=== PATIENT | female | born 1975 | race Caucasian/White ===

== ENCOUNTER 2016-08-11 07:00 | Inpatient (IN) | payer BC ==
[~2016-08-11] VITALS: Ht 154.9 cm; Wt 130.0 kg
[~2016-08-11 07:00] MED LIST: ACET-2047 PO; ASPI-664 PO; DULO60CA6 PO; GABA-526 PO; GLIP5TAB13 PO; HYDR25TA6 PO; LOSA25TA5 PO; METF1000 PO; SITA50TA2 PO
[2016-09-03] VITALS (32 sets, daily range): BP systolic 107–159; BP diastolic 53–87; PULSE 78–112; RESP 11–22; Ht 154.9 cm; Wt 130.0 kg
[2016-09-03] MEDS ORDERED: CEFAZOLIN 2 GM/50 ML (PMX) 50 ML IVPB SCH (08:00)
[2016-09-03] MEDS ORDERED: DILT180C75 PO (08:25)
[2016-09-03] MEDS ORDERED: METF850T PO (08:26)
[2016-09-03] MEDS ORDERED: SITA100T8 PO (08:27)
[2016-09-03] MEDS ORDERED: GLIP5TAB13 PO (08:30)
[2016-09-03] MEDS ORDERED: DULO60CA59 PO (08:31)
[2016-09-03] MEDS ORDERED: MIRT30TA5 PO (08:33)
[2016-09-03] MEDS ORDERED: ARIP10TA13 PO (08:34)
[2016-09-03] MEDS ORDERED: GABA-528 PO (08:35)
[2016-09-03] MEDS ORDERED: LORA0.5T PO (08:35)
--- NOTE | 2016-09-03 09:03 | HPN ---
Date/Time of Note Date/Time of Note DATE: 09/03/16 TIME: 09:02 Interval H&P Admission Note Pt. seen H&P reviewed: No system changes SIVAKUMAR SALVADOR MD Sep 03, 2016 09:02
[2016-09-03] MEDS ORDERED: ROCURONIUM 50 MG INJ ONE ×2 (09:27→10:29)
[2016-09-03] MEDS ORDERED: MIDAZOLAM 1 MG/ML 2 ML INJ ONE (09:27)
[2016-09-03] MEDS ORDERED: SUCCINYLCHOLINE CHLORIDE 100 MG/5 ML SYG IV ONE (09:27)
[2016-09-03] MEDS ORDERED: PROPOFOL 20 ML ONE ×2 (09:27→10:24)
[2016-09-03] MEDS ORDERED: LIDOCAINE 2% (SDV) 5 ML INJ ONE (09:27)
[2016-09-03] MEDS ORDERED: INSULIN ASPART [NOVOLOG] 3 ML PEN SC ONE ×2 (09:30→13:30)
[2016-09-03] MEDS ORDERED: GELATIN SIZE 100 SPONGE ONE ×2 (09:31→11:26)
[2016-09-03] MEDS ORDERED: HEPARIN 1000 UNITS/ML 10 ML INJ ONE (09:32)
[2016-09-03] MEDS ORDERED: THROMBIN 5000 UNIT VIAL ONE (09:32)
[2016-09-03] MEDS ORDERED: CEFAZOLIN 1 GM INJ ONE ×4 (09:32→13:47)
[2016-09-03] MEDS ORDERED: BUPIVACAINE 0.25% (MPF) 10 ML 10 ML VIAL ONE (09:32)
[2016-09-03] MEDS ORDERED: PHENYLephrine (100 MCG/ML) 5ML SYG ONE ×2 (10:21→11:41)
[2016-09-03] MEDS ORDERED: ONDANSETRON 4 MG INJ ONE (10:31)
[2016-09-03] MEDS ORDERED: FAMOTIDINE 20 MG INJ ONE (10:31)
[2016-09-03] MEDS ORDERED: METOCLOPRAMIDE 10 MG INJ ONE (10:32)
[2016-09-03] MEDS ORDERED: HYDROmorphONE 2 MG/ML SYG ONE (12:21)
[2016-09-03] MEDS ORDERED: THROMBIN(HUM PLAS)/FIBRINOG/CA 5 ML VIAL TOP ONE (13:22)
[2016-09-03] MEDS ORDERED: DIPHENHYDRAMINE 50 MG INJ IV PRN (13:30)
[2016-09-03] MEDS ORDERED: ONDANSETRON 4 MG INJ IV PRN ×2 (13:30→14:30)
[2016-09-03] MEDS ORDERED: PROCHLORPERAZINE 10 MG INJ IV PRN (13:30)
[2016-09-03] MEDS ORDERED: FENTAnyl 50 MCG/ML VIAL IV PRN (13:30)
[2016-09-03] MEDS ORDERED: HYDROmorphONE (0.2 MG/ML) 10ML SYG IV PRN (13:30)
[2016-09-03] MEDS ORDERED: MEPERIDINE 25 MG INJ IV PRN (13:30)
--- NOTE | 2016-09-03 13:57 | RADRPT ---
PROCEDURE: Intraoperative imaging of the lumbar spine with fluoroscopy. CLINICAL INDICATION: Back pain. Intraoperative. TECHNIQUE: 14 images of the lumbar spine were obtained in the operating room with an image intensi fier. No radiologist was in attendance. 62.6 seconds of fluoroscopy time was used. COMPARISON: No prior study is available for comparison. FINDINGS: For the purposes of this report, the last apparent true disc level is considered to be L5-S1. Based on this, images demonstrate posterior fusion with pedicle screws and connecting rods at L5-S1. IMPRESSION: 1. Intraoperative imaging of the lumbar spine. Posterior fusion at L5-S1. RPTAT: QQ .Sourav Sawyer MD, MD Date Time Electronically viewed and signed by .Sourav Sawyer MD, on 09/03/2016 13:57 .R/
[2016-09-03] MEDS ORDERED: CEPASTAT LOZENGE MT PRN (14:30)
[2016-09-03] MEDS ORDERED: DIPHENHYDRAMINE 50 MG CAP PO PRN (14:30)
[2016-09-03] MEDS ORDERED: BETHANECHOL 25 MG TAB PO PRN (14:30)
[2016-09-03] MEDS ORDERED: PROCHLORPERAZINE 10 MG TAB PO PRN (14:30)
[2016-09-03] MEDS ORDERED: NACL 0.9% 3 ML SYG IV SCH (14:30)
[2016-09-03] MEDS ORDERED: DIAZEPAM 5 MG TAB PO PRN (14:30)
[2016-09-03] MEDS ORDERED: ZOLPIDEM 5 MG TAB PO PRN (14:30)
[2016-09-03] MEDS ORDERED: DIAZEPAM 5 MG/ML SYG IM PRN (14:30)
[2016-09-03] MEDS ORDERED: ACETAMINOPHEN 325 MG TAB PO PRN (14:30)
[2016-09-03] MEDS ORDERED: NALOXONE (0.4 MG/ML) INJ IV PRN (14:30)
[2016-09-03] MEDS ORDERED: TRIMETHOBENZAMIDE 100 MG/ML VIAL IM PRN (14:30)
[2016-09-03] MEDS ORDERED: HYDROCODONE/APAP (5/325) TAB PO PRN (14:30)
[2016-09-03] MEDS ORDERED: AL HYDROX/MG HYDROX/SIMETH 30 ML CUP PO PRN (14:30)
--- NOTE | 2016-09-03 14:34 | OPR ---
Date/Time of Note Date/Time of Note DATE: 09/03/16 TIME: 14:30 Operative Report Preoperative Diagnosis Herniated lumbar disc L5-S1 centrally and to the right Grade 1 isthmic spondylolisthesis at L5-S1 Postoperative Diagnosis Same Operation Performed Transforaminal lumbar interbody fusion L5-S1 Akers procedure L5 Internal fixation L5-S1 with Alphatec pedicle screws and rods Placement of interbody bone graft at L5-S1, Peek cage with bone morphogenic protein. Cosmetic wound closure (10 cm) AP and lateral intraoperative fluoroscopy Intraoperative nerve monitoring (3-1/2 hours) Surgeon: SIVAKUMAR SALVADOR MD activities assistant: KRISS HAN Anesthesia: general Anesthesiologist: ANNABELLA MUÑOZ MD Estimated Blood Loss: other Specimens Disk L5-S1 Tubes/Drains 2 medium Hemovac drains employed Complications: None Pt Condition Post Procedure: stable Disposition: PACU Operative\Procedure Findings At surgery, the patient had a grade 1 isthmic spondylolisthesis at L5-S1 with a loose posterior arch at L5. There was a small to moderate central herniation of the L5-S1 disc. SIVAKUMAR SALVADOR MD Sep 03, 2016 14:34
[2016-09-03] MEDS ORDERED: HYDROmorphONE 0.2 MG/ML PCA ONE (14:45)
[2016-09-03] MEDS: HYDROmorphONE 0.2 MG/ML PCA IV SCH ×2 (15:02→20:59)
--- NOTE | 2016-09-03 15:21 | OPR ---
DATE OF OPERATION: 09/03/2016 PREOPERATIVE DIAGNOSES: 1. Grade I isthmic spondylolisthesis at L5-S1. 2. Herniated disk L5-S1 centrally and to the right. POSTOPERATIVE DIAGNOSES: 1. Grade I isthmic spondylolisthesis at L5-S1. 2. Herniated disk L5-S1 centrally and to the right. OPERATION PERFORMED: 1. Transforaminal lumbar interbody fusion at L5-S1. 2. Akers procedure of L5 (removal of loose posterior arch). 3. Internal fixation L5-S1 with Alphatec pedicle screws and rods bilaterally. 4. Placement of interbody bone graft at L5-S1 with PEEK cage and extra small unit of bone morphogen ic protein. 5. Cosmetic wound closure (10 cm). 6. AP and lateral intraoperative fluoroscopy. 7. Intraoperative nerve monitoring (3-1/2 hours) SURGEON: Iain Cameron MD AUTOMATIC BUFFING WHEEL FORMER: CONSTANZA Kennedy. ANESTHESIA: General endotracheal. ANESTHESIOLOGIST: Rut Hernandez MD ESTIMATED BLOOD LOSS: 350 mL and 150 mL of Cell Saver blood returned. COMPLICATIONS: None. DRAINS: Two medium Hemovac drains employed. COMPLICATIONS: None. SURGEON: Iain Cameron MD. PERTINENT HISTORY AND PHYSICAL: This is a 41-year-old female with persistent back and lower extremi ty complaints, right greater than left, which have been unrelieved by extensive conservative managem ent. She has undergone a number of diagnostic studies including an MRI of the lumbar spine, which d emonstrated a central and right paracentral herniation of the L5-S1 disk along with grade I isthmic spondylolisthesis at L5-S1. Treatment options were discussed with the patient, she elected to proce ed with surgery. OPERATIVE FINDINGS AT SURGERY: Grade I isthmic spondylolisthesis at L5-S1 with loose posterior arch of L5 was confirmed. There was also a small to moderate central and right paracentral herniation o f the L5-S1 disk. Baseline intraoperative nerve monitoring revealed a decrease in the right L5 pote ntial of 30% and the right S1 potential of 40%. These both returned to normal at the completion of surgery. OPERATIVE PROCEDURE: With the patient in supine position after satisfactory induction of general en dotracheal anesthesia by Dr. Hernandez, the patient was turned to the prone position onto the Trent fram e atop the fluoroscopic OSI table. All pressure points were carefully padded. The back was prepped and draped in usual sterile fashion. Athrombic pumps were applied to the legs below the knees to p revent venous stasis during and after the procedure. An indwelling Figueroa catheter was also placed p reoperatively to facilitate bladder drainage during and after the procedure. Two spinal needles wer e placed next to what was felt to be the L4 and L5 spinous processes and lateral fluoroscopic image was taken which confirmed anatomic localization. A 10 cm incision was then carried out midline over the spinous process of L5 through skin and subcutaneous tissue to deep fascia after skin was infilt rated with 0.25% Marcaine without epinephrine for postoperative analgesia. Superficial retractors w ere placed and hemostasis secured with electrocautery. Throughout the procedure, copious amounts of antibacterial irrigating solution were used to periodically irrigate the wound. The fascia was the n incised in midline and a bilateral subperiosteal dissection carried out from L4 to the sacrum. De ep retractors were placed and deep hemostasis secured with electrocautery. A John clamp was place d and it was felt to be the spinous process of L4 and L5 and lateral image was taken and confirmed a natomic localization. A decompressive laminectomy/Akers procedure at L5 was then carried out using a Annalisa right-angle bone rongeur, Leksell rongeur, Kerrison punches and curettes. The pars interar ticularis complex was removed bilaterally which was impinging on the L5 nerves bilaterally. The ope rating microscope was then moved into place. The S1 root on the right was mobilized medially with a blunt Agency elevator and protected with Rosalina nerve retractor using microdissection technique. This revealed a herniation of the L5-S1 disk. A 15 blade knife used to cut a rectangular window in the annulus and posterior longitudinal ligament and multiple degenerative disk fragments were then harvested with pituitary rongeurs and sent to laboratory for pathologic study. Additional fragments were harvested using Omar curettes. A thorough search of the floor of the canal was made with a n arthroscopic probe. No additional fragments were encountered. The Alphatec disk chiquita were the n inserted into the disk space starting with 6 mm shaver removing up to a 9 mm shaver, which appeare d to be the appropriate maximum size. The rasps were then used to abrade the cartilaginous endplate s down to subchondral bleeding bone. The PEEK cage trial spacers were then inserted into the disk s pace starting with a 6 mm trial and ending up with a 9 mm trial which appeared to be the appropriate size. A 9 mm lordotic PEEK cage was then selected and filled with an extra small unit of bone morp hogenic protein that had been saturating for approximately 45 minutes prior to implantation. Prior to implanting of the PEEK cage and bone morphogenic protein, the anterior aspect of the disk space w as packed with morselized bone from the posterior elements of L5. The PEEK cage was then impacted u nder direct vision. The opening into the canal from the disk space was sealed at the end of procedu re with Evicel to mitigate extravasation of the BMP into the canal. The pedicles of L5 and S1 were then identified and two 5.5 mm wide x 40 mm long pedicle screws were inserted into the L5 pedicles b ilaterally. Two 6.5 mm wide x 35 mm long variable angled Alphatec pedicle screws were placed into t he pedicles of S1 bilaterally. Again, AP and lateral fluoroscopic imaging was used to facilitate pl acement of the hardware and confirmation of the appropriate positioning of the PEEK cage in the L5-S 1 disk space. The Trent frame was then cranked to its lowest position and the 30 mm lordotic Alpha migue rods were then placed in the tulips of the L5 and S1 screws and were sequentially tightened to f actory specifications while the construct was held under compression bilaterally. Final AP and late ral imaging was taken, which confirmed appropriate positioning of the hardware and the interbody spa cer. The wound was then closed in layers over 2 medium Hemovac drains, one below the fascia and one above the fascia, using #1 Stratafix sutures on the deep paralumbar musculature and deep fascia of back, 2-0 Stratafix sutures in subcu tissue and a 4-0 Vicryl #6 cosmetic closing suture on the skin. Dermabond and sterile compressive dressings were applied. Patient having tolerated procedure well , was then turned to the supine position onto her bed and extubated by Dr. Hernandez. She was transporte d to recovery room in satisfactory condition. At the conclusion of the procedure, sponge, instrumen t, and needle counts were all correct. NEED FOR SOLAR SALES ASSOCIATE: During this spinal surgical procedure, my commercial escrow assistant was used to retrac t and protect the spinal nerves and dural sac. My commercial escrow assistant also employed the suction catheters to e vacuate blood from the surgical field to improve visualization of the neural structures. The assista nt was medically necessary to facilitate the completion of the surgery in a safe and expeditious man ner. [facility] regulations, as well as hospital bylaws, preclude the use of non-licensed [facility] hospital care personnel such as operating room technicians, to perform these functions. Throughout the procedure, neuromonitoring was carried out by [employer] in cluding EMG, SSEP and MEP monitoring of the L3, L4, L5 and S1 nerve roots bilaterally along with spi nal cord potentials. These were interpreted by a neurologist employed by [employer]. Dictated By: IAIN STREETER/BECKIE Conf#: [id number] DID#: [id number]
[2016-09-03] MEDS: SOD CHLORIDE 0.45% 1,000 ML IV SCH (18:31)
[2016-09-03] MEDS: CEFAZOLIN 1 GM/50 ML (PMX) 50 ML IVPB SCH ×2 (18:32→23:33)
--- NOTE | 2016-09-03 19:27 | CONS ---
Date/Time of Note Date/Time of Note DATE: 09/03/16 TIME: 19:27 Assessment/Plan Assessment/Plan Additional Assessment/Plan IMPRESSION 1. s/p Lumbar surgery 2. HTN 3. DM 4. Erosive Gastritis 5. Orbid Obesity with a BMI of 54 6. JAIDEN on CPAP at home PLAN cont current medical mgmt Adjust Insulin as need for better glycemic control Will check A1c, fasting lipids and TSH CPAP at night. Breathing tretment PRN weight loss advised Consultation Date/Type/Reason Admit Date/Time Sep 03, 2016 at 06:50 Hx of Present Illness Pt is a 56 yo morbidly obese female with hx of HTN, DM, JAIDEN on CPAP at home who is now s/p transforaminal lumbar interbody fusion at L5-S1. consult was placed for medical mgmt. Currently pt is denying, chest pain, SOB, fever, chills, N/V. . Social History Smoking Status: Never smoker Exam/Review of Systems Vital Signs Vitals Vital Signs Date Time Temp Pulse Resp B/P Pulse Ox O2 Delivery O2 Flow Rate FiO2 09/03/16 15:28 100 17 139/65 98 Nasal Cannula 3.0 09/03/16 14:26 98.9 Exam Constitutional: obese, other (sleepy, but arousable) Head: atraumatic, normocephalic Eyes: EOMI, PERRL Neck: non-tender, supple Respiratory: clear to auscultation, normal air movement Cardiovascular: nl pulses, regular rate and rhythm Gastrointestinal: non-tender, soft Extremities: normal pulses Results Results 24 hrs Laboratory Tests Test 09/03/16 08:41 09/03/16 10:56 09/03/16 13:03 09/03/16 15:51 Bedside Glucose 269 H 204 211 214 Test 09/03/16 18:44 Bedside Glucose 230 H Medications Medications Current Medications Sodium Chloride (1/2 NS) 1,000 ml @ 100 mls/hr Q10H IV Last administered on t 18:31; Admin Dose 100 MLS/HR; Start 09/03/16 at 14:19 Acetaminophen/ Hydrocodone Bitart ([place] (5/325)) 1 tab Q4H PRN PO PAIN LEVEL 1 -5; Start 09/03/16 at 14:30 Acetaminophen/ Hydrocodone Bitart 2 tab 2 tab Q4H PRN PO PAIN LEVEL 6-10; Start 09/03/16 at 14:30 Cefazolin Sodium (Ancef 1 Gm/50 ml (Pmx)) 50 ml @ 100 mls/hr Q6 IVPB Last administered on 09/03/16t 18:32; Admin Dose 100 MLS/HR; Start 09/03/16 at 18:00 ; Stop 09/04/16 at 12:29 Zolpidem Tartrate (Ambien) 5 mg HS PRN PO INSOMNIA; Start 09/03/16 at 14:30 Prochlorperazine (Compazine) 10 mg Q4H PRN PO NAUSEA AND/OR VOMITING; Start at 14:30 Trimethobenzamide HCl (Tigan) 200 mg Q4H PRN IM NAUSEA AND/OR VOMITING; Start 09/03/16 at 14:30 Ondansetron HCl (Zofran Inj) 4 mg Q6H PRN IV NAUSEA AND/OR VOMITING; Start at 14:30 Al Hydrox/Mg Hydrox/Simethicone (Mag-Al Plus) 15 ml Q4H PRN PO CONSTIPATION; Start 09/03/16 at 14:30 Docusate Sodium (Colace) 100 mg BID PO ; Start 09/04/16 at 09:00 Acetaminophen (Tylenol Tab) 650 mg Q4H PRN PO TEMP GREATER THAN 101F OR AGUDELO; Start 09/03/16 at 14:30 Ascorbic Acid (Vitamin C) 1,000 mg BID PO ; Start 09/04/16 at 09:00 Ferrous Sulfate (Ferrous Sulfate (Ec)) 325 mg TID PO ; Start 09/04/16 at 09:00 Ranitidine HCl (Zantac) 150 mg BID PO ; Start 09/03/16 at 21:00 Diazepam (Valium) 5 mg Q4H PRN PO MUSCLE SPASMS; Start 09/03/16 at 14:30 Diazepam (Valium) 5 mg Q4H PRN IM MUSCLE SPASMS; Start 09/03/16 at 14:30 Phenol (Cepastat Lozenge) 1 lozenge PRN PRN MT SORE THROAT; Start 09/03/16 at 14:30 Bethanechol Chloride (Urecholine) 25 mg PRN PRN PO UNABLE TO VOID; Start at 14:30 Diphenhydramine HCl (Benadryl) 50 mg Q6H PRN PO PRURITUS; Start 09/03/16 at 14: 30 Hydromorphone HCl (Dilaudid BODY ENGINEER) Q4PCA IV Last administered on 09/03/16t 15:02 ; Admin Dose 6 MG; Start 09/03/16 at 14:30 Naloxone HCl (Narcan) 0.2 mg Q2M PRN IV RR 8 BREATHS/MIN OR LESS; Start at 14:30 KRISTEN URENA MD Sep 03, 2016 19:27
[2016-09-03] MEDS ORDERED: LORAZEPAM 0.5 MG TAB PO PRN (19:30)
[2016-09-03] MEDS ORDERED: INSULIN GLARGINE [LANtus] 3 ML PEN SC SCH (20:00)
[2016-09-03] MEDS ORDERED: DEXTROSE 50% 50 ML SYRINGE IV PRN ×2 (20:00)
[2016-09-03] MEDS ORDERED: GLUCAGON 1 MG INJ IM PRN (20:00)
[2016-09-03] MEDS ORDERED: GLUCOSE GEL 15 GRAM TUBE BUCCAL PRN (20:00)
[2016-09-03] MEDS ORDERED: GLUCOSE GEL 15 GRAM TUBE PO PRN ×2 (20:00)
[2016-09-03] MEDS: GABAPENTIN 400 MG CAP PO SCH (20:44)
[2016-09-03] MEDS: MIRTAZAPINE 15 MG TAB PO SCH (20:44)
[2016-09-03] MEDS: RANITIDINE 150 MG TAB PO SCH (20:44)
[2016-09-03] MEDS: INSULIN ASPART [NOVOLOG] 3 ML PEN SC SCH (20:53)
[2016-09-04 00:01] VITALS: BP 122/59; PULSE 82
[2016-09-04] MEDS: SOD CHLORIDE 0.45% 1,000 ML IV SCH ×3 (00:19→20:19)
[2016-09-04 02:00] VITALS: BP 126/57; PULSE 81
[2016-09-04] MEDS: ACCU-CHEK XX SCH (02:51)
[2016-09-04 05:20] LABS: HEMATOCRIT 35.8 % (37.0-47.0); HEMOGLOBIN 10.8 g/dl (12.0-16.0)
[2016-09-04 05:37] LABS: CALCIUM 8.4 mg/dl (8.4-10.2); CREATININE 0.68 mg/dl (0.44-1.00); POTASSIUM 4.2 mmol/L (3.5-5.1)
[2016-09-04] MEDS: CEFAZOLIN 1 GM/50 ML (PMX) 50 ML IVPB SCH ×2 (05:46→12:10)
--- NOTE | 2016-09-04 07:09 | PN ---
Date/Time of Note Date/Time of Note DATE: 09/04/16 TIME: 07:08 Assessment/Plan Lines/Catheters IV Catheter Type (from Nrsg): Peripheral IV Figueroa in Place (from Nrsg): Yes Subjective 24 Hr Interval Summary The patient is postop day #1 following a transforaminal lumbar interbody fusion at L5-S1. She is resting comfortably. Neurovascular structures are intact distally. She is afebrile. Her morning labs show an elevated blood glucose ( 245) which is being managed by internal medicine. Today she will be mobilized with physical therapy as tolerated. Her Hemovac had 80 cc and will remain in place. Exam/Review of Systems Vital Signs Vitals Vital Signs Date Time Temp Pulse Resp B/P Pulse Ox O2 Delivery O2 Flow Rate FiO2 09/04/16 05:00 17 09/04/16 02:00 98.0 81 126/57 97 CPAP 09/03/16 22:00 2.0 Intake and Output 09/03/16 09/03/16 09/04/16 15:00 23:00 07:00 Intake Total 2550 ml 50 ml 1650 ml Output Total 510 ml 1880 ml Balance 2040 ml 50 ml -230 ml Results Result Diagram: 09/04/16 0450 09/04/16 0450 SIVAKUMAR SALVADOR MD Sep 04, 2016 07:09
[2016-09-04 07:37] VITALS: BP 143/80; RESP 18
[2016-09-04] MEDS ORDERED: BETHANECHOL 25 MG TAB PO PRN (08:00)
[2016-09-04] MEDS: HYDROmorphONE 0.2 MG/ML PCA IV SCH (08:22)
[2016-09-04] MEDS: GABAPENTIN 400 MG CAP PO SCH ×3 (09:56→20:30)
[2016-09-04] MEDS: ARIPIPRAZOLE 10 MG TAB PO SCH (09:56)
[2016-09-04] MEDS: DILTIAZEM (CD) 180 MG CAP PO SCH (09:57)
[2016-09-04] MEDS: LOSARTAN 25 MG TAB PO SCH (09:57)
[2016-09-04] MEDS: FERROUS SULFATE (EC) 325 MG TAB PO SCH ×3 (09:57→20:31)
[2016-09-04] MEDS: ASCORBIC ACID 500 MG TAB PO SCH ×2 (09:57→20:29)
[2016-09-04] MEDS: DULOXETINE 30 MG CAP DR PO SCH (09:57)
[2016-09-04] MEDS: RANITIDINE 150 MG TAB PO SCH ×2 (09:57→20:31)
[2016-09-04] MEDS: DOCUSATE SODIUM 100 MG CAP PO SCH ×2 (09:58→20:29)
[2016-09-04] MEDS: LINAGLIPTIN 5 MG TABLET PO SCH (09:58)
[2016-09-04] MEDS: HYDROCHLOROTHIAZIDE 25 MG TAB PO SCH (09:58)
[2016-09-04] MEDS: INSULIN ASPART [NOVOLOG] 3 ML PEN SC SCH ×4 (09:59→20:26)
[2016-09-04] MEDS: HYDROCODONE/APAP (5/325) TAB PO PRN ×2 (11:03→15:06)
--- NOTE | 2016-09-04 15:24 | CONS ---
Date/Time of Note Date/Time of Note DATE: 09/04/16 TIME: 15:22 Assessment/Plan Assessment/Plan Chief Complaint/Hosp Course No acute issues overnight. c/o intermittent back pain and being uncomfortable lying on her back Problems: Additional Assessment/Plan IMPRESSION 1. s/p Lumbar surgery 2. HTN 3. DM 4. Erosive Gastritis 5. Orbid Obesity with a BMI of 54 6. JAIDEN on CPAP at home PLAN cont current medical mgmt Adjust Insulin as need for better glycemic control Will check A1c, fasting lipids and TSH CPAP at night. Breathing tretment PRN weight loss advised Consultation Date/Type/Reason Admit Date/Time Sep 03, 2016 at 06:50 Initial Consult Date Reason for Consultation Medical mgmt Exam/Review of Systems Vital Signs Vitals Vital Signs Date Time Temp Pulse Resp B/P Pulse Ox O2 Delivery O2 Flow Rate FiO2 09/04/16 07:37 97.9 106 18 143/80 90 09/04/16 02:00 CPAP 09/03/16 22:00 2.0 Intake and Output 09/03/16 09/03/16 09/04/16 15:00 23:00 07:00 Intake Total 2550 ml 50 ml 1700 ml Output Total 510 ml 1880 ml Balance 2040 ml 50 ml -180 ml Exam Constitutional: obese, other (sleepy, but arousable) Head: atraumatic, normocephalic Eyes: EOMI, PERRL Neck: non-tender, supple Respiratory: clear to auscultation, normal air movement Cardiovascular: nl pulses, regular rate and rhythm Gastrointestinal: non-tender, soft Extremities: normal pulses Results Result Diagram: 09/04/16 0450 09/04/16 0450 Results 24 hrs Laboratory Tests Test 09/03/16 15:51 09/03/16 18:44 09/03/16 20:48 09/04/16 02:40 Bedside Glucose 214 230 H 188 213 Test 09/04/16 04:50 09/04/16 07:59 09/04/16 12:08 Hemoglobin 10.8 L Hematocrit 35.8 L Sodium Level 137 Potassium Level 4.2 Chloride Level 103 Carbon Dioxide Level 29 Anion Gap 9 Blood Urea Nitrogen 13 Creatinine 0.68 Glucose Level 235 H Calcium Level 8.4 Bedside Glucose 233 H 261 H Medications Medications Current Medications Sodium Chloride (1/2 NS) 1,000 ml @ 100 mls/hr Q10H IV Last administered on 05:04; Admin Dose 100 MLS/HR; Start 09/03/16 at 14:19 Acetaminophen/ Hydrocodone Bitart ([place] (5/325)) 1 tab Q4H PRN PO PAIN LEVEL 1 -5; Start 09/03/16 at 14:30 Acetaminophen/ Hydrocodone Bitart ([place] (5/325)) 2 tab Q4H PRN PO PAIN LEVEL 6 -10 Last administered on 09/04/16 15:06; Admin Dose 2 TAB; Start 09/03/16 at 14 :30 Zolpidem Tartrate (Ambien) 5 mg HS PRN PO INSOMNIA; Start 09/03/16 at 14:30 Prochlorperazine (Compazine) 10 mg Q4H PRN PO NAUSEA AND/OR VOMITING; Start at 14:30 Trimethobenzamide HCl (Tigan) 200 mg Q4H PRN IM NAUSEA AND/OR VOMITING; Start 09/03/16 at 14:30 Ondansetron HCl (Zofran Inj) 4 mg Q6H PRN IV NAUSEA AND/OR VOMITING Last administered on 09/03/16 20:45; Admin Dose 4 MG; Start 09/03/16 at 14:30 Al Hydrox/Mg Hydrox/Simethicone (Mag-Al Plus) 15 ml Q4H PRN PO CONSTIPATION; Start 09/03/16 at 14:30 Docusate Sodium (Colace) 100 mg BID PO Last administered on 09/04/16 09:58; Admin Dose 100 MG; Start 09/04/16 at 09:00 Acetaminophen (Tylenol Tab) 650 mg Q4H PRN PO TEMP GREATER THAN 101F OR AGUDELO; Start 09/03/16 at 14:30 Ascorbic Acid (Vitamin C) 1,000 mg BID PO Last administered on 09/04/16 09:57 ; Admin Dose 1,000 MG; Start 09/04/16 at 09:00 Ferrous Sulfate (Ferrous Sulfate (Ec)) 325 mg TID PO Last administered on 12:11; Admin Dose 325 MG; Start 09/04/16 at 09:00 Ranitidine HCl (Zantac) 150 mg BID PO Last administered on 09/04/16 09:57; Admin Dose 150 MG; Start 09/03/16 at 21:00 Diazepam (Valium) 5 mg Q4H PRN PO MUSCLE SPASMS; Start 09/03/16 at 14:30 Diazepam (Valium) 5 mg Q4H PRN IM MUSCLE SPASMS; Start 09/03/16 at 14:30 Phenol (Cepastat Lozenge) 1 lozenge PRN PRN MT SORE THROAT Last administered on 09/03/16 20:45; Admin Dose 1 LOZENGE; Start 09/03/16 at 14:30 Diphenhydramine HCl (Benadryl) 50 mg Q6H PRN PO PRURITUS; Start 09/03/16 at 14: 30 Hydromorphone HCl (Dilaudid REFINERY OPERATOR [employer]ING [employer]IT) Q4PCA IV Last administered on 09/04/16 08:22 ; Admin Dose 6 MG; Start 09/03/16 at 14:30 Naloxone HCl (Narcan) 0.2 mg Q2M PRN IV RR 8 BREATHS/MIN OR LESS; Start at 14:30 Aripiprazole (Abilify) 10 mg DAILY PO Last administered on 09/04/16 09:56; Admin Dose 10 MG; Start 09/04/16 at 09:00 Diltiazem HCl (Cardizem Cd) 180 mg DAILY PO Last administered on 09/04/16 09: 57; Admin Dose 180 MG; Start 09/04/16 at 09:00 Duloxetine HCl (Cymbalta) 120 mg DAILY PO Last administered on 09/04/16 09:57 ; Admin Dose 120 MG; Start 09/04/16 at 09:00 Gabapentin (Neurontin) 800 mg TID PO Last administered on 09/04/16 12:11; Admin Dose 800 MG; Start 09/03/16 at 21:00 Hydrochlorothiazide (Hydrochlorothiazide) 25 mg DAILY PO Last administered on 09:58; Admin Dose 25 MG; Start 09/04/16 at 09:00 Lorazepam (Ativan) 0.5 mg HS PRN PO ANXIETY; Start 09/03/16 at 19:30 Losartan Potassium (Cozaar) 25 mg DAILY PO Last administered on 09/04/16 09:57 ; Admin Dose 25 MG; Start 09/04/16 at 09:00 Mirtazapine (Remeron) 30 mg HS PO Last administered on 09/03/16 20:44; Admin Dose 30 MG; Start 09/03/16 at 21:00 Linagliptin (Tradjenta) 5 mg DAILY PO Last administered on 09/04/16 09:58; Admin Dose 5 MG; Start 09/04/16 at 09:00 Insulin Glargine (Lantus) 10 unit DAILY@20 SC Last administered on 09/03/16 20 :53; Admin Dose 10 UNIT; Start 09/03/16 at 20:00 Diagnostic Test (Pha) (Accu-Chek) 1 ea 02 XX Last administered on 09/04/16 02: 51; Admin Dose 1 EA; Start 09/04/16 at 02:00 Miscellaneous Information 1 ea NOTE XX ; Start 09/03/16 at 20:00 Glucose (Glutose) 15 gm Q15M PRN PO DECREASED GLUCOSE; Start 09/03/16 at 20:00 Glucose (Glutose) 22.5 gm Q15M PRN PO DECREASED GLUCOSE; Start 09/03/16 at 20: 00 Dextrose (D50w Syringe) 25 ml Q15M PRN IV DECREASED GLUCOSE; Start 09/03/16 at 20:00 Dextrose (D50w Syringe) 50 ml Q15M PRN IV DECREASED GLUCOSE; Start 09/03/16 at 20:00 Glucagon (Glucagen) 1 mg Q15M PRN IM DECREASED GLUCOSE; Start 09/03/16 at 20:00 Glucose (Glutose) 15 gm Q15M PRN BUCCAL DECREASED GLUCOSE; Start 09/03/16 at 20 :00 Bethanechol Chloride (Urecholine) 25 mg PRN PRN PO UNABLE TO VOID Last administered on 09/04/16 09:57; Admin Dose 25 MG; Start 09/04/16 at 08:00 KRISTEN URENA MD Sep 04, 2016 15:24
[2016-09-04 19:09] LABS: ADD UMIC YES; URINE BILIRUBIN (Dip) NEGATIVE (NEGATIVE); URINE BLOOD (Dip) 1+ (NEGATIVE); URINE COLOR LT. YELLOW (YELLOW); URINE KETONES (Dip) NEGATIVE (NEGATIVE); URINE LEUKOCYTE ESTERASE (Dip) NEGATIVE (NEGATIVE); URINE NITRITE (Dip) NEGATIVE (NEGATIVE); URINE TOTAL PROTEIN (Dip) NEGATIVE (NEGATIVE); URINE UROBILINOGEN (Dip) 0.2 E.U./dL (0.1-1.0)
[2016-09-04 19:26] LABS: SQUAMOUS EPITHELIAL CELL,UR MODERATE; URINE RBCS 0-2 /HPF (0)
[2016-09-04 19:41] VITALS: BP 113/53; RESP 20
[2016-09-04] MEDS ORDERED: INSULIN GLARGINE [LANtus] 3 ML PEN SC SCH (20:00)
[2016-09-04] MEDS: MIRTAZAPINE 15 MG TAB PO SCH (20:29)
[2016-09-05] MEDS: HYDROCODONE/APAP (5/325) TAB PO PRN ×4 (01:16→20:18)
[2016-09-05] MEDS: ACCU-CHEK XX SCH (02:00)
[2016-09-05] MEDS: SOD CHLORIDE 0.45% 1,000 ML IV SCH ×2 (04:41→16:19)
[2016-09-05 06:06] LABS: ADD SCAN DIFF NO
[2016-09-05 07:00] VITALS: BP 123/56; RESP 20
--- NOTE | 2016-09-05 07:09 | PN ---
Date/Time of Note Date/Time of Note DATE: 09/05/16 TIME: 07:08 Assessment/Plan Lines/Catheters IV Catheter Type (from Nrsg): Peripheral IV Figueroa in Place (from Nrsg): No Subjective 24 Hr Interval Summary The patient is postop day #2 following a lumbar fusion at L5-S1. She is resting comfortably in bed. She is afebrile. Neurovascular structures are intact distally. Her morning blood sugar was over 300. I have spoken with the trial lawyer. Physical therapy is cleared her for discharge. She has 65 cc of blood in her Hemovac. I will monitor her Hemovac output and pulled the drain when appropriate. Exam/Review of Systems Vital Signs Vitals Vital Signs Date Time Temp Pulse Resp B/P Pulse Ox O2 Delivery O2 Flow Rate FiO2 09/04/16 19:41 98.6 108 20 113/53 95 09/04/16 02:00 CPAP 09/03/16 22:00 2.0 Intake and Output 09/04/16 09/04/16 09/05/16 14:59 22:59 06:59 Intake Total 600 ml 1050 ml 850 ml Output Total 160 ml 1165 ml Balance 600 ml 890 ml -315 ml Results Result Diagram: 09/04/16 0450 09/04/16 0450 SIVAKUMAR SALVADOR MD Sep 05, 2016 07:09
[2016-09-05 07:10] LABS: ALBUMIN 3.5 g/dl (3.3-4.9); ALBUMIN/GLOBULIN RATIO 1.29; BILIRUBIN,INDIRECT 0.2 mg/dl (0-1.1); BILIRUBIN,TOTAL 0.2 mg/dl (0.2-1.3); CALCIUM 8.9 mg/dl (8.4-10.2); CREATININE 0.54 mg/dl (0.44-1.00); TOTAL PROTEIN 6.2 g/dl (6.1-8.1)
[2016-09-05 07:12] LABS: CHOL/HDL RATIO 5.3 RATIO
[2016-09-05 07:31] LABS: THYROID STIMULATING HORMONE 0.143 MIU/L (0.465-4.680)
[2016-09-05 08:49] LABS: POTASSIUM 4.5 mmol/L (3.5-5.1)
[2016-09-05] MEDS ORDERED: INSULIN GLARGINE [LANtus] 3 ML PEN SC SCH ×2 (09:00→20:00)
[2016-09-05] MEDS: INSULIN ASPART [NOVOLOG] 3 ML PEN SC SCH ×4 (09:01→20:24)
[2016-09-05] MEDS: ASCORBIC ACID 500 MG TAB PO SCH ×2 (09:02→20:17)
[2016-09-05] MEDS: DOCUSATE SODIUM 100 MG CAP PO SCH ×2 (09:02→20:20)
[2016-09-05] MEDS: DILTIAZEM (CD) 180 MG CAP PO SCH (09:03)
[2016-09-05] MEDS: GABAPENTIN 400 MG CAP PO SCH ×3 (09:03→20:20)
[2016-09-05] MEDS: RANITIDINE 150 MG TAB PO SCH ×2 (09:04→20:21)
[2016-09-05] MEDS: LOSARTAN 25 MG TAB PO SCH (09:04)
[2016-09-05] MEDS: DULOXETINE 30 MG CAP DR PO SCH (09:04)
[2016-09-05] MEDS: FERROUS SULFATE (EC) 325 MG TAB PO SCH ×3 (09:05→20:21)
[2016-09-05] MEDS: LINAGLIPTIN 5 MG TABLET PO SCH (09:05)
[2016-09-05] MEDS: HYDROCHLOROTHIAZIDE 25 MG TAB PO SCH (09:05)
[2016-09-05] MEDS: ARIPIPRAZOLE 10 MG TAB PO SCH (09:06)
--- NOTE | 2016-09-05 11:20 | PN ---
Date/Time of Note Date/Time of Note DATE: 09/05/16 TIME: 11:03 Assessment/Plan VTE Prophylaxis VTE Prophylaxis Intervention: SCD's Lines/Catheters IV Catheter Type (from Nrsg): Peripheral IV Urinary Cath still in place: No Assessment/Plan Assessment/Plan IMPRESSION 1. s/p Lumbar surgery 2. HTN 3. DM type 2 A1c 8.8 4. Erosive Gastritis 5. Morbid Obesity with a BMI of 54 6. JAIDEN on CPAP at home 7. Tachycardia 8. Hx of Pulm HTN diagnosed with RHC likely 2/2 #6 PLAN * Continue OOB as tolerated * resume home diabetic regimen and keep Lantus as a1c demonstrates poor home control, closely monitor however * May require increase in dose of CCB for tachycardia, however will r/o thyroid disease first and ensure pain is well controlled * Continue CPAP at night. Breathing treatment PRN * weight loss advised * ASA still on hold, resume once cleared by surgery Thanks for the Consult. We will continue to follow with you. Subjective 24 Hr Interval Summary Free Text/Dictation doing well has been cleared for OOB by PT Blood sugars still elevated Exam/Review of Systems Vital Signs Vitals Vital Signs Date Time Temp Pulse Resp B/P Pulse Ox O2 Delivery O2 Flow Rate FiO2 09/05/16 07:00 99.1 110 20 123/56 94 09/04/16 02:00 CPAP 09/03/16 22:00 2.0 Intake and Output 09/04/16 09/04/16 09/05/16 15:00 23:00 07:00 Intake Total 600 ml 1050 ml 850 ml Output Total 160 ml 1165 ml Balance 600 ml 890 ml -315 ml Exam Constitutional: alert, obese, oriented Psych: nl mood/affect Head: atraumatic, normocephalic Eyes: PERRL, No icteric ENMT: mucosa pink and moist Neck: supple Respiratory: clear to auscultation, diminished breath sounds Cardiovascular: No regular rate and rhythm (tachycardia) Gastrointestinal: bowel sounds, non-tender, other (back brace in place), soft Extremities: edema (mild in both feet) Skin: No rash or lesions Results Result Diagram: 09/04/16 4740 09/05/16 0424 Results 24 hrs Laboratory Tests Test 09/04/16 11:45 09/04/16 12:08 09/04/16 17:22 09/04/16 20:19 Urine Color LT. YELLOW Urine Clarity SLIGHTLY CLOUDY Urine pH 5.5 Urine Specific [place] 1.015 Urine Ketones NEGATIVE Urine Nitrite NEGATIVE Urine Bilirubin NEGATIVE Urine Urobilinogen 0.2 E.U./dL Urine Leukocyte Esterase NEGATIVE Urine Microscopic RBC 0-2 Urine Microscopic WBC 0-2 Urine Squamous Epithelial Cells MODERATE Urine Hemoglobin 1+ H Urine Glucose 0.5% H Urine Total Protein NEGATIVE Bedside Glucose 261 H 207 330 H Test 09/05/16 01:49 09/05/16 04:24 09/05/16 08:11 Bedside Glucose 301 H 340 H Sodium Level 136 Potassium Level 4.5 Chloride Level 100 Carbon Dioxide Level 30 Anion Gap 11 Blood Urea Nitrogen 11 Creatinine 0.54 Glucose Level 300 H Hemoglobin A1c 8.8 H Calcium Level 8.9 Total Bilirubin 0.2 Direct Bilirubin 0.00 Indirect Bilirubin 0.2 Aspartate Amino Transf (AST/SGOT) 27 Alanine Aminotransferase (ALT/SGPT) 34 Alkaline Phosphatase 106 Total Protein 6.2 Albumin 3.5 Globulin 2.70 Albumin/Globulin Ratio 1.29 Triglycerides Level 83 Cholesterol Level 156 LDL Cholesterol, Calculated 110 HDL Cholesterol 29 L Cholesterol/HDL Ratio 5.3 Thyroid Stimulating Hormone (TSH) 0.143 L Medications Medications Current Medications Sodium Chloride (1/2 NS) 1,000 ml @ 100 mls/hr Q10H IV Last administered on 05:04; Admin Dose 100 MLS/HR; Start 09/03/16 at 14:19 Acetaminophen/ Hydrocodone Bitart ([place] (5/325)) 1 tab Q4H PRN PO PAIN LEVEL 1 -5; Start 09/03/16 at 14:30 Acetaminophen/ Hydrocodone Bitart ([place] (5/325)) 2 tab Q4H PRN PO PAIN LEVEL 6 -10 Last administered on 09/05/16 10:33; Admin Dose 2 TAB; Start 09/03/16 at 14 :30 Zolpidem Tartrate (Ambien) 5 mg HS PRN PO INSOMNIA; Start 09/03/16 at 14:30 Prochlorperazine (Compazine) 10 mg Q4H PRN PO NAUSEA AND/OR VOMITING; Start at 14:30 Trimethobenzamide HCl (Tigan) 200 mg Q4H PRN IM NAUSEA AND/OR VOMITING; Start 09/03/16 at 14:30 Ondansetron HCl (Zofran Inj) 4 mg Q6H PRN IV NAUSEA AND/OR VOMITING Last administered on 09/03/16 20:45; Admin Dose 4 MG; Start 09/03/16 at 14:30 Al Hydrox/Mg Hydrox/Simethicone (Mag-Al Plus) 15 ml Q4H PRN PO CONSTIPATION; Start 09/03/16 at 14:30 Docusate Sodium (Colace) 100 mg BID PO Last administered on 09/05/16 09:02; Admin Dose 100 MG; Start 09/04/16 at 09:00 Acetaminophen (Tylenol Tab) 650 mg Q4H PRN PO TEMP GREATER THAN 101F OR AGUDELO; Start 09/03/16 at 14:30 Ascorbic Acid (Vitamin C) 1,000 mg BID PO Last administered on 09/05/16 09:02 ; Admin Dose 1,000 MG; Start 09/04/16 at 09:00 Ferrous Sulfate (Ferrous Sulfate (Ec)) 325 mg TID PO Last administered on 09:05; Admin Dose 325 MG; Start 09/04/16 at 09:00 Ranitidine HCl (Zantac) 150 mg BID PO Last administered on 09/05/16 09:04; Admin Dose 150 MG; Start 09/03/16 at 21:00 Diazepam (Valium) 5 mg Q4H PRN PO MUSCLE SPASMS Last administered on 09/04/16 17:51; Admin Dose 5 MG; Start 09/03/16 at 14:30 Diazepam (Valium) 5 mg Q4H PRN IM MUSCLE SPASMS; Start 09/03/16 at 14:30 Phenol (Cepastat Lozenge) 1 lozenge PRN PRN MT SORE THROAT Last administered on 09/03/16 20:45; Admin Dose 1 LOZENGE; Start 09/03/16 at 14:30 Diphenhydramine HCl (Benadryl) 50 mg Q6H PRN PO PRURITUS; Start 09/03/16 at 14: 30 Hydromorphone HCl (Dilaudid PRINTING SALES REPRESENTATIVE) Q4PCA IV Last administered on 09/04/16 08:22 ; Admin Dose 6 MG; Start 09/03/16 at 14:30 Naloxone HCl (Narcan) 0.2 mg Q2M PRN IV RR 8 BREATHS/MIN OR LESS; Start at 14:30 Aripiprazole (Abilify) 10 mg DAILY PO Last administered on 09/05/16 09:06; Admin Dose 10 MG; Start 09/04/16 at 09:00 Diltiazem HCl (Cardizem Cd) 180 mg DAILY PO Last administered on 09/05/16 09: 03; Admin Dose 180 MG; Start 09/04/16 at 09:00 Duloxetine HCl (Cymbalta) 120 mg DAILY PO Last administered on 09/05/16 09:04 ; Admin Dose 120 MG; Start 09/04/16 at 09:00 Gabapentin (Neurontin) 800 mg TID PO Last administered on 09/05/16 09:03; Admin Dose 800 MG; Start 09/03/16 at 21:00 Hydrochlorothiazide (Hydrochlorothiazide) 25 mg DAILY PO Last administered on 09:05; Admin Dose 25 MG; Start 09/04/16 at 09:00 Lorazepam (Ativan) 0.5 mg HS PRN PO ANXIETY; Start 09/03/16 at 19:30 Losartan Potassium (Cozaar) 25 mg DAILY PO Last administered on 09/05/16 09:04 ; Admin Dose 25 MG; Start 09/04/16 at 09:00 Mirtazapine (Remeron) 30 mg HS PO Last administered on 09/04/16 20:29; Admin Dose 30 MG; Start 09/03/16 at 21:00 Linagliptin (Tradjenta) 5 mg DAILY PO Last administered on 09/05/16 09:05; Admin Dose 5 MG; Start 09/04/16 at 09:00 Diagnostic Test (Pha) (Accu-Chek) 1 ea 02 XX Last administered on 09/04/16 02: 51; Admin Dose 1 EA; Start 09/04/16 at 02:00 Miscellaneous Information 1 ea NOTE XX ; Start 09/03/16 at 20:00 Glucose (Glutose) 15 gm Q15M PRN PO DECREASED GLUCOSE; Start 09/03/16 at 20:00 Glucose (Glutose) 22.5 gm Q15M PRN PO DECREASED GLUCOSE; Start 09/03/16 at 20: 00 Dextrose (D50w Syringe) 25 ml Q15M PRN IV DECREASED GLUCOSE; Start 09/03/16 at 20:00 Dextrose (D50w Syringe) 50 ml Q15M PRN IV DECREASED GLUCOSE; Start 09/03/16 at 20:00 Glucagon (Glucagen) 1 mg Q15M PRN IM DECREASED GLUCOSE; Start 09/03/16 at 20:00 Glucose (Glutose) 15 gm Q15M PRN BUCCAL DECREASED GLUCOSE; Start 09/03/16 at 20 :00 Bethanechol Chloride (Urecholine) 25 mg PRN PRN PO UNABLE TO VOID Last administered on 09/04/16 09:57; Admin Dose 25 MG; Start 09/04/16 at 08:00 Insulin Glargine (Lantus) 10 unit DAILY@20 SC ; Start 09/05/16 at 20:00 Insulin Glargine (Lantus) 20 unit DAILY@09 SC Last administered on 09/05/16 08 :59; Admin Dose 20 UNIT; Start 09/05/16 at 09:00 BUFFY NUÑEZ Sep 05, 2016 11:13
[2016-09-05] MEDS: metFORMIN 850 MG TAB PO SCH ×2 (12:55→17:47)
[2016-09-05 13:07] LABS: BASOPHILS % 0.1 % (0.0-2.0); EOSINOPHILS % 0.2 % (0.0-7.0); HEMATOCRIT 34.4 % (37.0-47.0); HEMOGLOBIN 10.2 g/dl (12.0-16.0); LYMPHOCYTES # 2.3 10^3/ul (0.8-2.9); LYMPHOCYTES % 18.4 % (15.0-51.0); MEAN CORPUSCULAR HEMOGLOBIN 26.4 pg (29.0-33.0); MEAN CORPUSCULAR HGB CONC 29.7 g/dl (32.0-37.0); MEAN CORPUSCULAR VOLUME 89.1 fl (82.0-101.0); MEAN PLATELET VOLUME 10.3 fl (7.4-10.4); MONOCYTE # 0.7 10^3/ul (0.3-0.9); MONOCYTES % 5.4 % (0.0-11.0); NEUTROPHIL # 9.3 10^3/ul (1.6-7.5); NEUTROPHILS % 75.3 % (39.0-77.0); PLATELET COUNT 251 10^3/UL (140-415); RED BLOOD COUNT 3.86 10^6/ul (4.20-5.40); RED CELL DISTRIBUTION WIDTH 15.1 % (11.5-14.5); WHITE BLOOD COUNT 12.3 10^3/ul (4.8-10.8)
[2016-09-05] MEDS: MIRTAZAPINE 15 MG TAB PO SCH (20:21)
[2016-09-05] MEDS ORDERED: glipiZIDE 5 MG TAB PO SCH (21:00)
== END 2016-09-05 22:00 | disposition home or self-care (01) | DRG 460 ==
LOC: REC 09-03 06:50 → MS1 09-03 18:10
PROVIDERS: ADMIT Orthopaedic Surgery; ATTEND Orthopaedic Surgery
PROC: 01NB0ZZ Release Lumbar Nerve, Open Approach (ICD-10-PCS; 2016-09-03)
PROC: 0ST40ZZ Resection of Lumbosacral Disc, Open Approach (ICD-10-PCS; 2016-09-03)
PROC: 4A11X4G Monitoring of Peripheral Nervous Electrical Activity, Intraoperative, External Approach (ICD-10-PCS; 2016-09-03)
PROC: 0SG30A1 (ICD-10-PCS; principal; 2016-09-03 10:00)
DX: M43.17 Spondylolisthesis, lumbosacral region (principal); I27.0 Primary pulmonary hypertension; F33.2 Major depressive disorder, recurrent severe without psychotic features; E66.2 Morbid (severe) obesity with alveolar hypoventilation; Z68.43 Body mass index [BMI] 50.0-59.9, adult; E11.9 Type 2 diabetes mellitus without complications; M51.27 Other intervertebral disc displacement, lumbosacral region; M47.896 Other spondylosis, lumbar region; M54.31 Sciatica, right side; D11.9 Benign neoplasm of major salivary gland, unspecified; K29.60 Other gastritis without bleeding; G47.33 Obstructive sleep apnea (adult) (pediatric); F41.9 Anxiety disorder, unspecified; R00.0 Tachycardia, unspecified; Z87.891 Personal history of nicotine dependence; Z82.49 Family history of ischemic heart disease and other diseases of the circulatory system; Z83.3 Family history of diabetes mellitus
CPT/HCPCS: 72114; 80048; 80053; 80061; 81001; 81003; 82962; 83036; 84443; 85014; 85018; 85025; 86850; 86900; 86901; 86920; 87086; 88304; 97116; 97163; 97530; C1713; C9250; J0330; J0400; J0690; J1170; J1644; J1815; J2250; J2370; J2405; J2765; J3010; L8699

== ENCOUNTER 2018-06-02 05:17 | Inpatient (IN) | payer BC ==
[2018-06-02] VITALS (26 sets, daily range): BP systolic 113–140; BP diastolic 56–81; PULSE 61–93; RESP 5–18; Ht 154.9 cm; Wt 100.2 kg
[~2018-06-02] VITALS: Ht 154.9 cm; Wt 100.2 kg
[~2018-06-02 05:17] MED LIST changes: -ACET-2047 PO; +ARIP10TA12 PO; -ASPI-664 PO; +DILT180C72 PO; +DULO60CA59 PO; -DULO60CA6 PO; -GABA-526 PO; +GABA-528 PO; +LORA0.5T PO; +LOSA25TA12 PO; -LOSA25TA5 PO; -METF1000 PO; +METF850T13 PO; +MIRT30TA5 PO; +SITA100T11 PO; -SITA50TA2 PO
[2018-06-02] MEDS ORDERED: LORA10TA3 PO (06:14)
[2018-06-02] MEDS ORDERED: CEFAZOLIN 2 GM/50 ML (PMX) 50 ML IVPB ONE (06:40)
[2018-06-02] MEDS ORDERED: CEFAZOLIN 2 GM/50 ML (PMX) 50 ML IVPB SCH (06:47)
--- NOTE | 2018-06-02 06:48 | PREAC ---
Date/Time of Note Date/Time of Note DATE: 06/02/18 TIME: 06:46 Anesthesia Eval and Record Evaluation Time Pre-Procedure Interview DATE: 06/02/18 TIME: 06:46 Age 43 Sex female NPO: 8 hrs Preoperative diagnosis painful hardware Planned procedure hardware removal and exploration spinal fusion L5-S1 Past Medical History Past Medical History: Includes Cardio: HTN, Dyslipidemia, Other (palpitations) Endo: Diabetes Pulm: Sleep Apnea GI: Morbid obesity Surgery & Anesthesia Issues No known issue Meds Anticoagulation: No Beta Dora within 24 hr: No Reason Beta Dora not given: Pt. not on B-Dora Reported Medications Loratadine* (Loratadine*) 10 Mg Tablet, 10 MG PO DAILY, #30 TAB 06/02/18 Gabapentin* (Gabapentin*) 800 Mg Tablet, 800 MG PO TID, #90 TAB 09/03/16 Diltiazem Hcl* (Cardizem CD*) 180 Mg Cap.sr.24h, 180 MG PO DAILY, #30 CAP 09/03/16 Losartan Potassium* (Losartan Potassium*) 25 Mg Tablet, 25 MG PO DAILY 06/05/15 Discontinued Reported Medications Lorazepam* (Lorazepam*) 0.5 Mg Tablet, 0.5 MG PO HS PRN for ANXIETY, TAB 09/03/16 Aripiprazole* (Abilify*) 10 Mg Tablet, 10 MG PO DAILY, #30 TAB 09/03/16 Mirtazapine* (Mirtazapine*) 30 Mg Tablet, 30 MG PO HS, TAB 09/03/16 Duloxetine Hcl* (Duloxetine Hcl*) 60 Mg Capsule.dr, 120 MG PO DAILY, #30 CAP 09/03/16 Glipizide* (Glipizide*) 5 Mg Tablet, 5 MG PO BID, TAB 09/03/16 Sitagliptin* (Januvia*) 100 Mg Tablet, 100 MG PO DAILY, #30 TAB 09/03/16 Metformin Hcl* (Metformin Hcl*) 850 Mg Tablet, 850 MG PO TID, #30 TAB 09/03/16 Hydrochlorothiazide (Hydrochlorothiazide) 25 Mg Tablet, 25 MG PO DAILY 05/28/12 Meds reviewed: Yes Allergies Coded Allergies: No Known Allergy (Unverified , 06/02/18) Allergies Reviewed: Yes Labs/Studies Labs Reviewed: Reviewed by anesthesiologist Blood Bank Test 06/02/18 06:36 Blood Product Summary Counts test: Negative Studies: ECG, CXR Pre-procedure Exam Airway: Adequate mouth opening, Adequate thyromental dist Mallampati: Mallampati III Teeth: Normal Lung: Normal Heart: Normal ASA Physical Status ASA physical status: 3 Emergency: None Planned Anesthetic General/MAC: ETT Planned Pain Management Parenteral pain med Pre-operative Attestations Prior to commencing anesthesia and surgery, the patient was re-evaluated, there was verification of: *The patient's identity *The results of appropriate recent lab work and preoperative vital signs *The above evaluation not changing prior to induction *Anesthetic plan, risk benefits, alternative and complications discussed with patient/family; questions answered; patient/family understands, accepts and wishes to proceed. ANNABELLA MUÑOZ MD Jun 02, 2018 06:48
[2018-06-02] MEDS ORDERED: PROPOFOL 20 ML ONE ×2 (07:00→07:41)
[2018-06-02] MEDS ORDERED: LACTATED RINGER'S 1,000 ML IV* SCH (07:00)
[2018-06-02] MEDS ORDERED: LIDOCAINE 2% (SDV) 5 ML INJ ONE ×2 (07:00→09:44)
[2018-06-02] MEDS ORDERED: ROCURONIUM 50 MG INJ ONE ×2 (07:00→07:41)
[2018-06-02] MEDS ORDERED: SUCCINYLCHOLINE CHLORIDE 100 MG/5 ML SYG IV ONE ×2 (07:00→07:41)
[2018-06-02] MEDS ORDERED: MIDAZOLAM 1 MG/ML 2 ML INJ ONE ×2 (07:00→09:44)
--- NOTE | 2018-06-02 07:01 | HPN ---
Date/Time of Note Date/Time of Note DATE: 06/02/18 TIME: 07:00 Interval H&P Admission Note Pt. seen H&P reviewed: No system changes SIVAKUMAR SALVADOR MD Jun 02, 2018 07:00
[2018-06-02] MEDS ORDERED: THROMBIN 5000 UNIT VIAL ONE (07:02)
[2018-06-02] MEDS ORDERED: GELATIN SIZE 100 SPONGE ONE (07:02)
[2018-06-02] MEDS ORDERED: BUPIVACAINE 0.25% (MPF) 30 ML INJ ONE (07:02)
[2018-06-02] MEDS ORDERED: POLYMYXIN/BACITRACIN 1L IRRIG ONE (07:02)
[2018-06-02] MEDS ORDERED: DEXAMETHASONE 4 MG/ML 5 ML INJ ONE ×2 (07:23→10:02)
[2018-06-02] MEDS ORDERED: ONDANSETRON 4 MG INJ ONE ×2 (07:23→10:02)
[2018-06-02] MEDS ORDERED: FAMOTIDINE 20 MG INJ ONE ×2 (07:23→10:02)
[2018-06-02] MEDS ORDERED: LABETALOL HCL 20MG INJ IV PRN (07:30)
[2018-06-02] MEDS ORDERED: FENTAnyl 50 MCG/ML VIAL IV PRN ×2 (07:30)
[2018-06-02] MEDS ORDERED: MEPERIDINE 25 MG INJ IV PRN (07:30)
[2018-06-02] MEDS ORDERED: PROCHLORPERAZINE 10 MG INJ IV PRN (07:30)
[2018-06-02] MEDS ORDERED: hydrALAzine 20 MG INJ IV PRN (07:30)
[2018-06-02] MEDS ORDERED: DIPHENHYDRAMINE 50 MG INJ IV PRN (07:30)
[2018-06-02] MEDS ORDERED: HYDROmorphONE 1 MG/5 ML IV SYRINGE IV PRN ×3 (07:30)
[2018-06-02] MEDS ORDERED: ONDANSETRON 4 MG INJ IV PRN ×2 (07:30→09:30)
[2018-06-02] MEDS ORDERED: NEOSTIGMINE 3 MG/3 ML SYRINGE ONE ×2 (08:46)
[2018-06-02] MEDS ORDERED: GLYCOPYRROLATE 0.4 MG INJ ONE (08:46)
--- NOTE | 2018-06-02 09:15 | PAC ---
Date/Time of Note Date/Time of Note DATE: 06/02/18 TIME: 09:14 Post-Anesthesia Notes Post-Anesthesia Note Last documented vital signs Vital Signs Date Temp Pulse Resp B/P (MAP) Pulse Ox O2 O2 Flow FiO2 Time Delivery Rate 06/02/18 97.6 65 18 140/81 96 Room Air 06:48 (100) Activity: WNL Respiratory function: WNL Cardiovascular function: WNL Mental status: Baseline Pain reasonably controlled: Yes Hydration appropriate: Yes Nausea/Vomiting absent: Yes Comments BP: 128/68 HR: 69 RR: 15 T: 98.5 SaO2: 100% ANNABELLA MUÑOZ MD Jun 02, 2018 09:14
--- NOTE | 2018-06-02 09:20 | SIPON ---
Date/Time of Note Date/Time of Note DATE: 06/02/18 TIME: 09:15 Operative Report Preoperative Diagnosis Status post transforaminal lumbar interbody fusion at L5-S1 with painful hardware Postoperative Diagnosis Same Operation/Procedure Performed Exploration of lumbar fusion at L5-S1 Removal of painful hardware L5-S1 bilaterally Revision of scar (10cm) Lateral lumbar localizing radiograph Intraoperative nerve monitoring (2.5 hours) Surgeon see signature line dental office assistant Laura STAPLETONA Anesthesia: general Estimated blood loss: 50 - 100 ml's Transfusion Required none Specimen 4 pedicle screws, four locking caps, and 2 rods Grafts/Implants none Complications none SIVAKUMAR SALVADOR MD Jun 02, 2018 09:20
[2018-06-02] MEDS ORDERED: PROCHLORPERAZINE 10 MG TAB PO PRN (09:30)
[2018-06-02] MEDS ORDERED: DIAZEPAM 5 MG/ML SYG IM PRN (09:30)
[2018-06-02] MEDS ORDERED: ACETAMINOPHEN 325 MG TAB PO PRN (09:30)
[2018-06-02] MEDS ORDERED: HYDROCODONE/APAP (5/325) TAB PO PRN ×2 (09:30)
[2018-06-02] MEDS ORDERED: NACL 0.9% 3 ML SYG IV SCH (09:30)
[2018-06-02] MEDS ORDERED: BETHANECHOL 25 MG TAB PO PRN (09:30)
[2018-06-02] MEDS ORDERED: DIPHENHYDRAMINE 50 MG CAP PO PRN (09:30)
[2018-06-02] MEDS ORDERED: CEPASTAT LOZENGE MT PRN (09:30)
[2018-06-02] MEDS ORDERED: ZOLPIDEM 5 MG TAB PO PRN (09:30)
[2018-06-02] MEDS ORDERED: TRIMETHOBENZAMIDE 100 MG/ML VIAL IM PRN (09:30)
[2018-06-02] MEDS ORDERED: NALOXONE (0.4 MG/ML) INJ IV PRN (09:30)
[2018-06-02] MEDS ORDERED: AL HYDROX/MG HYDROX/SIMETH 30 ML CUP PO PRN (09:30)
[2018-06-02] MEDS: FENTAnyl 50 MCG/ML VIAL IV PRN ×2 (09:52→10:07)
[2018-06-02] MEDS: HYDROmorphONE 0.2 MG/ML PCA IV SCH ×2 (09:55→22:04)
[2018-06-02] MEDS ORDERED: FENTAnyl 50 MCG/ML VIAL ONE (10:01)
--- NOTE | 2018-06-02 10:40 | OPR ---
DATE OF OPERATION: 06/02/2018 PRE- AND POSTOPERATIVE DIAGNOSIS: Status post transforaminal lumbar interbody fusion at L5-S1 with retained painful hardware. OPERATION PERFORMED: 1. Exploration of lumbar fusion, L5-S1. 2. Removal of retained painful hardware. 3. Revision of scar (10 cm). 4. Lateral localized lumbar radiograph. 5. Intraoperative nerve monitoring (2-1/2 hours) SURGEON: Iain Cameron MD PARKING LOT SIGNALER: CONSTANZA Kennedy ANESTHESIA: General endotracheal. ANESTHESIOLOGIST: Rut Hernandez MD ESTIMATED BLOOD LOSS: 75 mL, none replaced. DRAINS: Two medium Hemovac drains employed. COMPLICATIONS: None. PERTINENT HISTORY AND PHYSICAL: This is a 43-year-old female with persistent low back pain following a transforaminal lumbar interbody fusion in 08/2016. She has undergone appropriate workup thus far including MRI of the lumbar spine which failed to identify any other intraspinal abnormalities. She was seen in consultation with a pain specialist who performed an infiltration of her hardware, which gave her good, but temporary relief. Treatment options discussed with the patient, she elected to pr oceed with surgery. OPERATIVE FINDINGS AT SURGERY: The hardware was removed without incident, and while the screws were in place, but the rods were removed, an attempt to distract the screws revealed no motion at the fusi on site. The baseline intraoperative nerve monitoring revealed a decrease in the left L5 potential of 30% and the bilateral S1 potentials of 30%. These all returned to normal at the completion of the surgery. OPERATIVE PROCEDURE: With the patient in supine position after satisfactory induction of general end otracheal anesthesia by Dr. Hernandez, the patient was turned to the prone position onto the Trent frame atop the radiolucent OSI table. All pressure points were carefully padded. The back was prepped and draped in the usual sterile fashion. Athrombic pumps were applied to the legs below the knees to pr event venous stasis during and after procedure. An indwelling Figueroa catheter was also placed preoper ative to facilitate bladder drainage during and after the procedure. A 10 cm incision then carried midline through the previous lumbar scar through skin and subcutaneous tissue to the fascia. Superficial retractors were placed and hemostasis secured with electrocautery. A fascial incision was made, and a subperiosteal dissection carried out at what was felt to be the L4 spinous process. A John clamp was placed on the L4 spinous process and lateral radiograms taken which confirmed anatomic localization. With this having been demonstrated, the dissection was then carried out laterally to the level of the hardware. Four locking caps were removed using the appropr iate screwdriver, and the rods were then removed using John clamps. With the locking caps and rods removed, the distractor was then used to attempt to separate the L5 and S1 pedicle screws and no mot ion was detected. It was elected to proceed with the removal of the 4 pedicle screws which was perfo rmed with the pedicle screw racecar driver. Hemostasis was secured with bipolar electrocautery. The wound w as then closed in layers over 2 medium Hemovac drains, one below the fascia, one above the fascia usi ng #1 Stratafix sutures in deep parallel musculature and deep fascia of the back, 2-0 Stratafix sutur es in subcu tissue, and a 4-0 Vicryl subcuticular cosmetic closing suture in the skin. Dermabond and sterile compressive dressings were applied. Patient having tolerated procedure well and was then tu rned to the supine position onto her bed and extubated by Dr. Hernandez. She was transported to the [facility] room in satisfactory condition. At the conclusion of procedure, sponge, instrument, and needle c ounts were all correct. NEED FOR EMPLOYEE BENEFITS MANAGER: During this spinal surgical procedure, my medical library assistant was used to retract and protect the spinal nerves and dural sac. My medical library assistant also employed the suction catheters to josef renato blood from the surgical field to improve visualization of the neural structures. The medical library assistant was medically necessary to facilitate the completion of the surgery in a safe and expeditious manner. State of [place] regulations, as well as hospital bylaws, preclude the use of non-licensed health care personnel such as operating room technicians, to perform these functions. Throughout the procedure, neural monitoring was carried out by [employer] including EMG, MEP an d SSEP monitoring of the L3, L4, L5 and S1 nerve roots bilaterally, along with spinal cord potentials . These were interpreted in real time by Dr. Jono Solorio. Dictated By: IAIN STREETER/BECKIE Conf#: [id number] DID#: [id number] CC: SARA ALVAREZ MD; IAIN CAMERON MD;*EndCC*
[2018-06-02] MEDS ORDERED: SUGAMMADEX SODIUM 200 MG/2 ML VIAL IV ONE ×2 (11:22→11:28)
[2018-06-02] MEDS: CEFAZOLIN 1 GM/50 ML (PMX) 50 ML IVPB SCH ×2 (12:20→17:49)
[2018-06-02] MEDS: DEXTROSE 5%-0.45% NACL 1,000 ML IV SCH ×2 (12:26→17:49)
[2018-06-02] MEDS: LOSARTAN 25 MG TAB PO SCH (13:00)
--- NOTE | 2018-06-02 13:46 | CONS ---
DATE OF ADMISSION: 06/02/2018 DATE OF CONSULTATION: 06/02/2018 TYPE OF CONSULTATION: Postoperative medical. Thank you very much for allowing me to evaluate the above patient, a 43-year-old female, who just und erwent lumbar back surgery. HISTORICAL EVENTS: As you well know, the patient was admitted early today to undergo removal of hard cannon and exploration of spinal fusion at L5 to S1. Postoperatively, she is comfortable with mild to moderate back pain, but without cough, wheezing, shortness of breath, nausea, vomiting, abdominal or chest pain. PAST MEDICAL HISTORY: Includes: 1. History of diabetes without need for meds following gastric bypass. 2. History of obesity. 3. Obstructive sleep apnea. 4. History of pulmonary hypertension. 5. History of peripheral neuropathy. 6. Chronic knee pain. 7. Prior tonsillectomy. 8. History of kidney stones. 9. Echo and stress study prior to this admission was negative. FAMILY HISTORY: Positive for diabetes. SOCIAL HISTORY: She does not smoke or drink. She was a [employer]. MEDICATIONS PRIOR TO ADMISSION: 1. Diltiazem 180 per day. 2. Losartan 25 mg per day. 3. Gabapentin 600 mg t.i.d. 4. Aspirin 81 mg per day. PHYSICAL EXAMINATION: GENERAL: [place] female in no acute distress. VITAL SIGNS: BP 122/80, pulse 70, respirations were 18. She was afebrile. HEENT: Eyes: Extraocular muscles were full. Nose, mouth and throat are normal. NECK: Supple. There was no jugular venous distention, thyroid enlargement or adenopathy. LUNGS: Clear. HEART: Rhythm regular. No murmur. No third or fourth sound. ABDOMEN: Obese. Liver and spleen are not palpable. No tenderness. EXTREMITIES: No edema. Calves are nontender. Pulses are 2+. NEUROLOGIC: No lateralizing motor weakness. IMPRESSION: 1. Stable postoperative lumbar back surgery. 2. History of hypertension. We will monitor BP throughout and continue her usual BP meds. 3. History of diabetes. We will monitor her sugar. 4. We will evaluate daily for signs and symptoms of thromboembolic disease. Dictated By: ADELA MURILLO/NTS Conf#: [id number] DID#: [id number] CC: SIVAKUMAR SALVADOR MD;*EndCC*
[2018-06-02] MEDS: DILTIAZEM (CD) 180 MG CAP PO SCH (14:00)
[2018-06-02] MEDS: GABAPENTIN 400 MG CAP PO SCH ×2 (15:52→21:20)
[2018-06-02] MEDS: LORATADINE 10 MG TAB PO SCH (15:52)
[2018-06-02] MEDS: RANITIDINE 150 MG TAB PO SCH (21:20)
[2018-06-03] MEDS: CEFAZOLIN 1 GM/50 ML (PMX) 50 ML IVPB SCH ×2 (00:08→05:21)
[2018-06-03 00:30] VITALS: BP 135/65; PULSE 84; RESP 18
[2018-06-03] MEDS: DIAZEPAM 5 MG TAB PO PRN ×5 (00:54→19:48)
[2018-06-03 05:10] VITALS: BP 128/67; PULSE 66; RESP 19
[2018-06-03] MEDS: DEXTROSE 5%-0.45% NACL 1,000 ML IV SCH ×2 (05:21→15:09)
--- NOTE | 2018-06-03 07:01 | PN ---
Date/Time of Note Date/Time of Note DATE: 06/03/18 TIME: 06:59 Assessment/Plan Lines/Catheters IV Catheter Type (from Nrsg): Peripheral IV Figueroa in Place (from Nrsg): Yes Subjective 24 Hr Interval Summary The patient is postop day #1 following exploration of spinal fusion and removal of painful hardware at L5-S1 bilaterally. She is resting comfortably in bed. Neurovascular structures are intact distally. She is afebrile. A.m. lab work is unremarkable. A Figueroa catheter is in place. Her Hemovac drainage was minimal (20 cc) and will be removed. He will be mobilized as tolerated with physical therapy, and discharged home when cleared by physical therapy. She has been given strict discharge precautions and instructions as well as follow-up arrangements. Exam/Review of Systems Vital Signs Vitals Vital Signs Date Temp Pulse Resp B/P (MAP) Pulse Ox O2 O2 Flow FiO2 Time Delivery Rate 06/03/18 18 05:47 06/03/18 98.5 66 128/67 98 Nasal 05:10 (87) Cannula 06/03/18 3.0 00:30 Intake and Output 06/02/18 06/02/18 06/03/18 1515:00 23:00 07:00 IntakeIntake Total 950 ml 1895 ml 1100 ml OutputOutput Total 670 ml 1700 ml 10 ml BalanceBalance 280 ml 195 ml 1090 ml Results Result Diagram: 06/03/18 0448 06/03/18 0448 SIVAKUMAR SALVADOR MD Jun 03, 2018 07:01
[2018-06-03] MEDS ORDERED: BETHANECHOL 25 MG TAB PO PRN (08:00)
--- NOTE | 2018-06-03 08:29 | CONS ---
Date/Time of Note Date/Time of Note DATE: 06/03/18 TIME: 08:26 Assessment/Plan Assessment/Plan Assessment/Plan 1. Stable postoperative lumbar back surgery. 2. HBP, controlled 3. History of diabetes, sugar is acceptable 4. Anxiety has resolved Result Diagram: 06/03/18 0448 06/03/18 0448 Results 24hrs Laboratory Tests Test 06/03/18 04:48 Hemoglobin 10.5 L Hematocrit 33.2 L Sodium Level 137 Potassium Level 4.0 Chloride Level 101 Carbon Dioxide Level 28 Anion Gap 8 Blood Urea Nitrogen 13 Creatinine 0.51 Est Glomerular Filtrat Rate mL/min > 60 Glucose Level 166 Calcium Level 9.0 Phosphorus Level 4.1 Magnesium Level 1.9 Consultation Date/Type/Reason Admit Date/Time Jun 02, 2018 at 05:17 Initial Consult Date Detailed Summary Respiratory: No cough, No shortness of breath Cardiovascular: No chest pain Gastrointestinal: no complaints Genitourinary: other (vizcarra in place) Musculoskeletal: back pain (moderate) Psychological: other (was anxious last night, valium helped) Exam/Review of Systems Vital Signs Vitals Vital Signs Date Temp Pulse Resp B/P (MAP) Pulse Ox O2 O2 Flow FiO2 Time Delivery Rate 06/03/18 18 05:47 06/03/18 98.5 66 128/67 98 Nasal 05:10 (87) Cannula 06/03/18 3.0 00:30 Intake and Output 06/02/18 06/02/18 06/03/18 1515:00 23:00 07:00 IntakeIntake Total 950 ml 1895 ml 1100 ml OutputOutput Total 670 ml 1700 ml 10 ml BalanceBalance 280 ml 195 ml 1090 ml Exam Neck: bruits; No jvd Respiratory: clear to auscultation Cardiovascular: regular rate and rhythm Gastrointestinal: soft Extremities: No edema, No tenderness Medications Medications Current Medications Dextrose/Sodium Chloride 1,000 ml @ 100 mls/hr Q10H IV Last administered on 06/03/18at 05:21; Admin Dose 100 MLS/HR; Start 06/02/18 at 09:09 Acetaminophen/ Hydrocodone Bitart ([place] (5/325)) 1 tab Q4H PRN PO PAIN LEVEL 1-5; Start 06/02/18 at 09:30; Status Hold Acetaminophen/ Hydrocodone Bitart ([place] (5/325)) 2 tab Q4H PRN PO PAIN LEVEL 6-10; Start 06/02/18 at 09:30; Status Hold Zolpidem Tartrate (Ambien) 5 mg HS PRN PO INSOMNIA; Start 06/02/18 at 09:30 Prochlorperazine (Compazine) 10 mg Q4H PRN PO NAUSEA AND/OR VOMITING; Start 06/02/18 at 09:30 Trimethobenzamide HCl (Tigan) 200 mg Q4H PRN IM NAUSEA AND/OR VOMITING; Start 06/02/18 at 09:30 Ondansetron HCl (Zofran Inj) 4 mg Q6H PRN IV NAUSEA AND/OR VOMITING; Start 06/02/18 at 09:30 Al Hydrox/Mg Hydrox/Simethicone (Mag-Al Plus) 15 ml Q4H PRN PO CONSTIPATION; Start 06/02/18 at 09:30 Docusate Sodium (Colace) 100 mg BID PO ; Start 06/03/18 at 09:00 Acetaminophen (Tylenol Tab) 650 mg Q4H PRN PO HEADACHE; Start 06/02/18 at 09:30 Ascorbic Acid (Vitamin C) 1,000 mg BID PO ; Start 06/03/18 at 09:00 Ferrous Sulfate (Ferrous Sulfate (Ec)) 325 mg TID PO ; Start 06/03/18 at 09:00 Ranitidine HCl (Zantac) 150 mg BID PO Last administered on 06/02/18at 21:20; Admin Dose 150 MG; Start 06/02/18 at 21:00 Diazepam (Valium) 5 mg Q4H PRN PO MUSCLE SPASMS Last administered on 06/03/18at 05:27; Admin Dose 5 MG; Start 06/02/18 at 09:30 Phenol (Cepastat Lozenge) 1 lozenge PRN PRN MT SORE THROAT; Start 06/02/18 at 09:30 Bethanechol Chloride (Urecholine) 25 mg PRN PRN PO UNABLE TO VOID; Start 06/02/18 at 09:30 Diphenhydramine HCl (Benadryl) 50 mg Q6H PRN PO PRURITUS Last administered on 06/02/18at 12:25; Admin Dose 50 MG; Start 06/02/18 at 09:30 IV Flush (NS 3 ml) 3 ml PER PROTOCOL IV ; Start 06/02/18 at 09:30 Hydromorphone HCl (Dilaudid SOCIAL SERVICES DIRECTOR) Q4PCA IV Last administered on 06/02/18at 22:04; Admin Dose 6 MG; Start 06/02/18 at 09:30 Naloxone HCl (Narcan) 0.2 mg Q2M PRN IV OPIATE OVERDOSE; Start 06/02/18 at 09:30 Diltiazem HCl (Cardizem Cd) 180 mg DAILY PO ; Start 06/02/18 at 14:00 Loratadine (Claritin) 10 mg DAILY PO Last administered on 06/02/18at 15:52; Admin Dose 10 MG; Start 06/02/18 at 13:00 Losartan Potassium (Cozaar) 25 mg DAILY PO ; Start 06/02/18 at 13:00 Gabapentin (Neurontin) 800 mg TID PO Last administered on 06/02/18at 21:20; Admin Dose 800 MG; Start 06/02/18 at 13:00 ADELA STOCKTON MD Jun 03, 2018 08:29
[2018-06-03 08:40] VITALS: BP 141/65; PULSE 65; RESP 19
[2018-06-03] MEDS: GABAPENTIN 400 MG CAP PO SCH ×3 (09:20→20:31)
[2018-06-03] MEDS: LORATADINE 10 MG TAB PO SCH (09:20)
[2018-06-03] MEDS: ASCORBIC ACID 500 MG TAB PO SCH ×2 (09:20→20:32)
[2018-06-03] MEDS: DOCUSATE SODIUM 100 MG CAP PO SCH ×2 (09:20→20:31)
[2018-06-03] MEDS: FERROUS SULFATE (EC) 325 MG TAB PO SCH ×3 (09:20→20:37)
[2018-06-03] MEDS: RANITIDINE 150 MG TAB PO SCH ×2 (09:20→20:31)
[2018-06-03] MEDS: DILTIAZEM (CD) 180 MG CAP PO SCH (09:21)
[2018-06-03] MEDS: LOSARTAN 25 MG TAB PO SCH (09:22)
[2018-06-03] MEDS: HYDROCODONE/APAP (5/325) TAB PO PRN ×4 (10:08→22:09)
[2018-06-03] MEDS ORDERED: HYDROCODONE/APAP (5/325) TAB PO PRN (10:30)
[2018-06-03 15:06] VITALS: BP 129/71; PULSE 69; RESP 19
[2018-06-03 19:30] VITALS: BP 114/58; PULSE 74; RESP 20
[2018-06-03] MEDS ORDERED: FLUCONAZOLE 150 MG TAB PO ONE (21:00)
[2018-06-04] MEDS: DIAZEPAM 5 MG TAB PO PRN (00:05)
[2018-06-04] MEDS: DEXTROSE 5%-0.45% NACL 1,000 ML IV SCH ×2 (01:09→09:00)
[2018-06-04 02:10] VITALS: BP 109/67; PULSE 63; RESP 18
[2018-06-04] MEDS: HYDROCODONE/APAP (5/325) TAB PO PRN ×2 (04:53→08:44)
--- NOTE | 2018-06-04 07:23 | PN ---
Date/Time of Note Date/Time of Note DATE: 06/04/18 TIME: 07:22 Assessment/Plan Lines/Catheters IV Catheter Type (from Nrsg): Saline Lock Figueroa in Place (from Nrsg): No Subjective 24 Hr Interval Summary The patient is postop day #2 following exploration of spinal fusion and removal of painful hardware at L5-S1 bilaterally. She is resting comfortably in bed and is feeling better today. Neurovascular structures are intact distally. She is afebrile. Plan for today is to progress ambulation with physical therapy, after which she should be cleared for discharge. Discharge medications and instructions reviewed with patient. Exam/Review of Systems Vital Signs Vitals Vital Signs Date Temp Pulse Resp B/P (MAP) Pulse Ox O2 O2 Flow FiO2 Time Delivery Rate 06/04/18 98.4 63 18 109/67 97 02:10 (81) 06/03/18 Nasal 15:06 Cannula 06/03/18 3.0 00:30 Intake and Output 06/03/18 06/03/18 06/04/18 1515:00 23:00 07:00 IntakeIntake Total 1200 ml 630 ml OutputOutput Total 700 ml BalanceBalance 500 ml 630 ml Results Result Diagram: 06/04/18 0433 06/04/18 0433 RAYNA CARRILLO Jun 04, 2018 07:23
[2018-06-04 07:35] VITALS: BP 120/68; PULSE 63; RESP 18
[2018-06-04] MEDS: RANITIDINE 150 MG TAB PO SCH (08:43)
[2018-06-04] MEDS: GABAPENTIN 400 MG CAP PO SCH (08:43)
[2018-06-04] MEDS: DILTIAZEM (CD) 180 MG CAP PO SCH (08:43)
[2018-06-04] MEDS: FERROUS SULFATE (EC) 325 MG TAB PO SCH (08:43)
[2018-06-04] MEDS: DOCUSATE SODIUM 100 MG CAP PO SCH (08:44)
[2018-06-04] MEDS: ASCORBIC ACID 500 MG TAB PO SCH (08:44)
[2018-06-04] MEDS: LORATADINE 10 MG TAB PO SCH (08:44)
[2018-06-04] MEDS: LOSARTAN 25 MG TAB PO SCH (08:44)
--- NOTE | 2018-06-04 08:46 | CONS ---
Date/Time of Note Date/Time of Note DATE: 06/04/18 TIME: 08:44 Assessment/Plan Assessment/Plan Assessment/Plan 1. Stable post op Lumbar back surgery. 2. BP control is acceptable 3. Hypothyroidism on replacement Result Diagram: 06/04/18 0433 06/04/18 0433 Results 24hrs Laboratory Tests Test 06/03/18 10:00 06/04/18 04:33 Urine Color YELLOW Urine Clarity SLIGHTLY CLOUDY A Urine pH 5.0 Urine Specific [place] 1.020 Urine Ketones NEGATIVE Urine Nitrite NEGATIVE Urine Bilirubin NEGATIVE Urine Urobilinogen NEGATIVE Urine Leukocyte Esterase 3+ H Urine Microscopic RBC 36 H Urine Microscopic WBC 101 H Urine Squamous Epithelial Cells FEW Urine Bacteria FEW A Urine Mucus FEW A Urine Hemoglobin 1+ H Urine Glucose NEGATIVE Urine Total Protein 2+ H White Blood Count 11.3 H Red Blood Count 3.75 L Hemoglobin 10.0 L Hematocrit 32.6 L Mean Corpuscular Volume 86.9 Mean Corpuscular Hemoglobin 26.7 L Mean Corpuscular Hemoglobin Concent 30.7 L Red Cell Distribution Width 13.3 Platelet Count 206 Mean Platelet Volume 10.4 Immature Granulocytes % 0.300 Neutrophils % 54.7 Lymphocytes % 35.9 Monocytes % 6.6 Eosinophils % 2.3 Basophils % 0.2 Nucleated Red Blood Cells % 0.0 Immature Granulocytes # 0.030 Neutrophils # 6.2 Lymphocytes # 4.1 H Monocytes # 0.8 Eosinophils # 0.3 Basophils # 0.0 Nucleated Red Blood Cells # 0.0 Sodium Level 138 Potassium Level 4.1 Chloride Level 99 Carbon Dioxide Level 33 H Anion Gap 6 Blood Urea Nitrogen 14 Creatinine 0.54 Est Glomerular Filtrat Rate mL/min > 60 Glucose Level 94 # Calcium Level 8.8 Phosphorus Level 4.0 Magnesium Level 1.9 Consultation Date/Type/Reason Admit Date/Time Jun 02, 2018 at 05:17 Initial Consult Date Detailed Summary Respiratory: No cough, No shortness of breath Cardiovascular: No chest pain Gastrointestinal: no complaints Genitourinary: no complaints Musculoskeletal: back pain (mild to mod without radic sxs) Exam/Review of Systems Vital Signs Vitals Vital Signs Date Temp Pulse Resp B/P (MAP) Pulse Ox O2 O2 Flow FiO2 Time Delivery Rate 06/04/18 98.0 63 18 120/68 96 Room Air 07:35 (85) 06/03/18 3.0 00:30 Intake and Output 06/03/18 06/03/18 06/04/18 1414:59 22:59 06:59 IntakeIntake Total 1200 ml 630 ml OutputOutput Total 700 ml BalanceBalance 500 ml 630 ml Exam Neck: No jvd Respiratory: clear to auscultation Cardiovascular: regular rate and rhythm Gastrointestinal: soft Extremities: No edema Medications Medications Current Medications Dextrose/Sodium Chloride 1,000 ml @ 100 mls/hr Q10H IV Last administered on 06/03/18at 05:21; Admin Dose 100 MLS/HR; Start 06/02/18 at 09:09 Zolpidem Tartrate (Ambien) 5 mg HS PRN PO INSOMNIA; Start 06/02/18 at 09:30 Prochlorperazine (Compazine) 10 mg Q4H PRN PO NAUSEA AND/OR VOMITING; Start 06/02/18 at 09:30 Trimethobenzamide HCl (Tigan) 200 mg Q4H PRN IM NAUSEA AND/OR VOMITING; Start 06/02/18 at 09:30 Ondansetron HCl (Zofran Inj) 4 mg Q6H PRN IV NAUSEA AND/OR VOMITING; Start 06/02/18 at 09:30 Al Hydrox/Mg Hydrox/Simethicone (Mag-Al Plus) 15 ml Q4H PRN PO CONSTIPATION; Start 06/02/18 at 09:30 Docusate Sodium (Colace) 100 mg BID PO Last administered on 06/03/18at 20:31; Admin Dose 100 MG; Start 06/03/18 at 09:00 Acetaminophen (Tylenol Tab) 650 mg Q4H PRN PO HEADACHE; Start 06/02/18 at 09:30 Ascorbic Acid (Vitamin C) 1,000 mg BID PO Last administered on 06/03/18at 20:32; Admin Dose 1,000 MG; Start 06/03/18 at 09:00 Ferrous Sulfate (Ferrous Sulfate (Ec)) 325 mg TID PO Last administered on 06/03/18at 20:37; Admin Dose 325 MG; Start 06/03/18 at 09:00 Ranitidine HCl (Zantac) 150 mg BID PO Last administered on 06/03/18at 20:31; Admin Dose 150 MG; Start 06/02/18 at 21:00 Diazepam (Valium) 5 mg Q4H PRN PO MUSCLE SPASMS Last administered on 06/04/18 00:05; Admin Dose 5 MG; Start 06/02/18 at 09:30 Phenol (Cepastat Lozenge) 1 lozenge PRN PRN MT SORE THROAT; Start 06/02/18 at 09:30 Bethanechol Chloride (Urecholine) 25 mg PRN PRN PO UNABLE TO VOID; Start 06/02/18 at 09:30 Diphenhydramine HCl (Benadryl) 50 mg Q6H PRN PO PRURITUS Last administered on 06/02/18at 12:25; Admin Dose 50 MG; Start 06/02/18 at 09:30 IV Flush (NS 3 ml) 3 ml PER PROTOCOL IV ; Start 06/02/18 at 09:30 Naloxone HCl (Narcan) 0.2 mg Q2M PRN IV OPIATE OVERDOSE; Start 06/02/18 at 09:30 Diltiazem HCl (Cardizem Cd) 180 mg DAILY PO Last administered on 06/03/18 09:21; Admin Dose 180 MG; Start 06/02/18 at 14:00 Loratadine (Claritin) 10 mg DAILY PO Last administered on 06/03/18 09:20; Admin Dose 10 MG; Start 06/02/18 at 13:00 Losartan Potassium (Cozaar) 25 mg DAILY PO Last administered on 06/03/18 09:22; Admin Dose 25 MG; Start 06/02/18 at 13:00 Gabapentin (Neurontin) 800 mg TID PO Last administered on 06/03/18at 20:31; Admin Dose 800 MG; Start 06/02/18 at 13:00 Acetaminophen/ Hydrocodone Bitart ([place] (5/325)) 1 tab Q4H PRN PO PAIN LEVEL 1-5; Start 06/03/18 at 10:30 Acetaminophen/ Hydrocodone Bitart ([place] (5/325)) 2 tab Q4H PRN PO PAIN LEVEL 6-10 Last administered on 06/04/18at 04:53; Admin Dose 2 TAB; Start 06/03/18 at 10:30 ADELA STOCKTON MD Jun 04, 2018 08:46
--- NOTE | 2018-06-11 13:51 | DS ---
Date/Time of Note Date/Time of Note DATE: 06/11/18 TIME: 13:50 Discharge Summary Admission/Discharge Info Admit Date/Time Jun 02, 2018 at 05:17 Discharge Date/Time Jun 04, 2018 at 11:00 Discharge Diagnosis Status post transforaminal lumbar interbody fusion at L5-S1 with retained painful hardware Patient Condition: Good Hospital Course Patient did well postoperatively. Her diet and activity were advanced as tolerated. Her pain was well controlled. She was discharged home in good condition on postop day #2 with strict discharge and follow-up instructions. Home Meds Reported Medications Loratadine* (Loratadine*) 10 Mg Tablet, 10 MG PO DAILY, #30 TAB 06/02/18 Gabapentin* (Gabapentin*) 800 Mg Tablet, 800 MG PO TID, #90 TAB 09/03/16 Diltiazem Hcl* (Cardizem CD*) 180 Mg Cap.sr.24h, 180 MG PO DAILY, #30 CAP 09/03/16 Losartan Potassium* (Losartan Potassium*) 25 Mg Tablet, 25 MG PO DAILY 06/05/15 Follow-up Plan Follow up with Dr. Cameron in 7-10 days. Primary Care Provider Not On Staff Doctor RAYNA CARRILLO Jun 11, 2018 13:51
== END 2018-06-04 11:00 | disposition home or self-care (01) | DRG 982 ==
LOC: REC 05:17 → MS1 10:21
PROVIDERS: ADMIT Orthopaedic Surgery; ATTEND Orthopaedic Surgery
PROC: 0SP004Z Removal of Internal Fixation Device from Lumbar Vertebral Joint, Open Approach (ICD-10-PCS; principal; 2018-06-02 07:00)
DX: T85.848A Pain due to other internal prosthetic devices, implants and grafts, initial encounter (principal); Z68.41 Body mass index [BMI] 40.0-44.9, adult; E66.01 Morbid (severe) obesity due to excess calories; Y79.8 Miscellaneous orthopedic devices associated with adverse incidents, not elsewhere classified; G47.33 Obstructive sleep apnea (adult) (pediatric); E11.42 Type 2 diabetes mellitus with diabetic polyneuropathy; I10 Essential (primary) hypertension; F41.9 Anxiety disorder, unspecified; E03.9 Hypothyroidism, unspecified
CPT/HCPCS: 72020; 80048; 81001; 82962; 83735; 84100; 85014; 85018; 85025; 86850; 86900; 86901; 86920; 87086; 88300; 97116; 97161; 97530; J0690; J1100; J1170; J2175; J2250; J2405; J2710; J3010; J7042

== ENCOUNTER 2018-11-28 20:39 | Emergency (ER) | payer BC ==
[~2018-11-28] VITALS: Ht 154.9 cm; Wt 94.1 kg
[~2018-11-28 20:39] MED LIST changes: -ARIP10TA12 PO; -DULO60CA59 PO; -GLIP5TAB13 PO; -HYDR25TA6 PO; -LORA0.5T PO; +LORA10TA3 PO; -METF850T13 PO; -MIRT30TA5 PO; -SITA100T11 PO
[2018-11-28 20:43] VITALS: Ht 154.9 cm; Wt 94.1 kg
[2018-11-28] MEDS ORDERED: TAMS-14 PO (23:09)
[2018-11-28] MEDS ORDERED: ACET-141 PO (23:09)
--- NOTE | 2018-11-28 23:12 | ERD ---
ER Documentation Chief Complaint Chief Complaint MID BACK PAIN R SIDE; DIARRHEA X'S 3 DAYS HPI 43-year-old female with history of diabetes, hypertension, pulmonary hypertension, kidney stones presents for right-sided back pain x3 days. The pain is from the right side of the back and right flank area, rated 4 out of 10, described as a dull sensation. There is no pain radiation. Patient had this type of pain a few months ago, had a CT abdomen pelvis done. shows a 1.5 cm right renal stone. Patient states that she has not been able get appoint with her primary care physician since the results of the CT. she denies fevers or c hills. Denies chest pain or shortness of breath. Denies dysuria. Denies nausea, vomiting. ROS All systems reviewed and are negative except as per history of present illness. Medications Home Meds Active Scripts Acetaminophen* (Acetaminophen*) 500 MG Extra Strength Tablet, 500 MG PO Q4H PRN for PAIN AND OR ELEVATED TEMP, #30 TAB Prov:MISAEL HOLCOMB DO 11/28/18 Tamsulosin Hcl* (Flomax*) 0.4 Mg Cap.er.24h, 0.4 MG PO DAILY for kidney stone, #30 CAP Prov:MISAEL HOLCOMB DO 11/28/18 Reported Medications Loratadine* (Loratadine*) 10 Mg Tablet, 10 MG PO DAILY, #30 TAB 06/02/18 Gabapentin* (Gabapentin*) 800 Mg Tablet, 800 MG PO TID, #90 TAB 09/03/16 Diltiazem Hcl* (Cardizem CD*) 180 Mg Cap.sr.24h, 180 MG PO DAILY, #30 CAP 09/03/16 Losartan Potassium* (Losartan Potassium*) 25 Mg Tablet, 25 MG PO DAILY 06/05/15 Allergies Allergies: Coded Allergies: No Known Allergy (Unverified , 06/02/18) PMhx/Soc History of Surgery: Yes (csection x4, BTL, litotrepsy, back sx, tonsilectomy, gastric bipas) Anesthesia Reaction: No Hx Neurological Disorder: Yes Hx Respiratory Disorders: Yes (pulmonary hipewrtention) Hx Cardiac Disorders: Yes (htn, ) Hx Psychiatric Problems: No Hx Miscellaneous Medical Probl: Yes (HTN, pulmonary hypertension, back problems, DM, obesity ) Hx Alcohol Use: No Hx Substance Use: No Hx Tobacco Use: No Smoking Status: Never smoker FmHx Family History: No coronary disease Physical Exam Vitals Vital Signs Date Temp Pulse Resp B/P (MAP) Pulse Ox O2 O2 Flow FiO2 Time Delivery Rate 11/28/18 97.7 53 18 159/75 99 23:27 (103) 11/28/18 97.0 62 18 149/73 97 20:43 (98) Physical Exam Const: No acute distress Resp: Clear to auscultation bilaterally Cardio: Regular rate and rhythm, no murmurs, peripheral pulses intact and equal Abd: Soft, non distended. Normal bowel sounds, no McBurney's point tenderness, no Hinton sign, no rebound or guarding noted Skin: No petechiae or rashes Back: There is some tenderness palpation of the right mid back area and right flank area with CVA tenderness. Ext: No cyanosis, or edema Neur: Awake and alert, bilateral upper lower extremity sensation intact Psych: Normal Mood and Affect Result Diagram: 11/28/18211711/28/182117 Results 24 hrs Laboratory Tests Test 11/28/18 21:18 11/28/18 21:42 White Blood Count 10.6 10^3/ul Red Blood Count 4.18 10^6/ul Hemoglobin 11.6 g/dl Hematocrit 36.6 % Mean Corpuscular Volume 87.6 fl Mean Corpuscular Hemoglobin 27.8 pg Mean Corpuscular Hemoglobin Concent 31.7 g/dl Red Cell Distribution Width 14.3 % Platelet Count 264 10^3/UL Mean Platelet Volume 9.6 fl Immature Granulocytes % 0.300 % Neutrophils % 64.6 % Lymphocytes % 28.5 % Monocytes % 5.5 % Eosinophils % 0.8 % Basophils % 0.3 % Nucleated Red Blood Cells % 0.0 /100WBC Immature Granulocytes # 0.030 10^3/ul Neutrophils # 6.9 10^3/ul Lymphocytes # 3.0 10^3/ul Monocytes # 0.6 10^3/ul Eosinophils # 0.1 10^3/ul Basophils # 0.0 10^3/ul Nucleated Red Blood Cells # 0.0 10^3/ul Urine Color YELLOW Urine Clarity SLIGHTLY CLOUDY Urine pH 6.0 Urine Specific [place] 1.025 Urine Ketones TRACE mg/dL Urine Nitrite NEGATIVE mg/dL Urine Bilirubin NEGATIVE mg/dL Urine Urobilinogen NEGATIVE mg/dL Urine Leukocyte Esterase TRACE [place]/ul Urine Microscopic RBC > 182 /HPF Urine Microscopic WBC 18 /HPF Urine Squamous Epithelial Cells MODERATE /HPF Urine Mucus MODERATE /HPF Urine Hemoglobin 3+ mg/dL Urine Glucose NEGATIVE mg/dL Urine Total Protein 2+ mg/dl Sodium Level 142 mmol/L Potassium Level 4.1 mmol/L Chloride Level 107 mmol/L Carbon Dioxide Level 28 mmol/L Anion Gap 7 Blood Urea Nitrogen 20 mg/dl Creatinine 0.60 mg/dl Est Glomerular Filtrat Rate mL/min > 60 mL/min Glucose Level 75 mg/dl Calcium Level 9.2 mg/dl Total Bilirubin 0.3 mg/dl Direct Bilirubin 0.00 mg/dl Indirect Bilirubin 0.3 mg/dl Aspartate Amino Transf (AST/SGOT) 22 IU/L Alanine Aminotransferase (ALT/SGPT) 19 IU/L Alkaline Phosphatase 85 IU/L Total Protein 7.0 g/dl Albumin 3.9 g/dl Globulin 3.10 g/dl Albumin/Globulin Ratio 1.25 Lipase 72 U/L POC Beta HCG, Qualitative NEGATIVE Procedures/MDM Medical Decision Making: Differential diagnosis includes but not limited to acute gastritis, acute gastroenteritis, appendicitis, cholecystitis, pancreatitis, nephrolithiasis, pyelonephritis Patient appeared well on physical exam. Nontoxic appearing. ED course: Patient was given . Symptoms improved with treatment. Labs: CBC showed no severe anemia, no elevated WBC to suggest infection CMP showed no electrolyte abnormalities, there was normal kidney and liver function Lipase was normal Urine was negative UA was negative for infection however there is a high amount of RBCs. Imaging: Renal ultrasound shows a right interpolar renal stone about 1.3 cm with mild hydronephrosis noted. There is also a left middle pole renal calculus about 8 mm without hydronephrosis. Patient's abdominal symptoms have stabilized while in the department. No evidence of severe dehydration, sepsis, or surgical abdomen Prescription(s): Patient given prescription for supportive medications with Flomax. Patient advised follow-up with primary care physician referral to urology as an outpatient. Patient advised to follow up with PCP in 1-2 days. Patient advised to return to ED for new or worsening symptoms. Patient stable on discharge from the ED. Disclaimer: Inadvertent spelling and grammatical errors are likely due to EHR/dictation software use and do not reflect on the overall quality of patient care. Also, please note that the electronic time recorded on this note does not necessarily reflect the actual time of the patient encounter. Departure Diagnosis: Primary Impression: Kidney stones Condition: Fair Patient Instructions: Understanding Kidney Stones, Preventing Kidney Stones Referrals: COUNTS INCLUDE 234 BEDS AT THE [facility] YOU HAVE RECEIVED A MEDICAL SCREENING EXAM AND THE RESULTS INDICATE THAT YOU DO NOT HAVE A CONDITION THAT REQUIRES URGENT TREATMENT IN THE EMERGENCY DEPARTMENT. FURTHER EVALUATION AND TREATMENT OF YOUR CONDITION CAN WAIT UNTIL YOU ARE SEEN IN YOUR DOCTORS OFFICE WITHIN THE NEXT 1-2 DAYS. IT IS YOUR RESPONSIBILITY TO MAKE AN APPOINTMENT FOR FOLOW-UP CARE. IF YOU HAVE A PRIMARY DOCTOR --you should call your primary doctor and schedule an appointment IF YOU DO NOT HAVE A PRIMARY DOCTOR YOU CAN CALL OUR PHYSICIAN REFERRAL HOTLINE AT IF YOU CAN NOT AFFORD TO SEE A PHYSICIAN YOU CAN CHOSE FROM THE FOLLOWING [facility] [address] [place] [address] [facility] [address] [facility] [address] [facility] [address] [facility] [facility] [address] Additional Instructions: Call your primary care doctor TOMORROW for an appointment during the next 1-2 d ays.See the doctor sooner or return here if your condition worsens before your appointment time. 1.3cm kidney stone on the right, 8mm on the left take flomax daily needs referral to urology MISAEL HOLCOMB DO Nov 28, 2018 23:12
[2018-11-28 23:27] VITALS: BP 159/75; PULSE 53; RESP 18
== END 2018-11-28 23:27 | disposition home or self-care (01) ==
LOC: FTE 20:39
DX: N20.0 Calculus of kidney (principal); I10 Essential (primary) hypertension; E11.9 Type 2 diabetes mellitus without complications; E66.9 Obesity, unspecified; Z68.39 Body mass index [BMI] 39.0-39.9, adult
CPT/HCPCS: 36415; 76775; 80053; 81001; 81025; 83690; 85025

== ENCOUNTER 2019-01-23 22:47 | Observation (INO) | payer OTHER, BC ==
[~2019-01-23] VITALS: Ht 157.5 cm; Wt 89.2 kg
[~2019-01-23 22:47] MED LIST changes: +ACET-141 PO; +ATOR20TA38 PO; +CITA10TA10 PO; +DILT180C94 PO; +LOSA100T15 PO; +NITR100C7 PO; +TAMS-14 PO
[2019-01-24] MEDS ORDERED: ONDANSETRON 4 MG INJ IV PRN ×2 (01:00→04:30)
[2019-01-24] MEDS ORDERED: ACETAMINOPHEN 325 MG TAB PO PRN (01:00)
[2019-01-24 03:15] VITALS: Ht 157.5 cm; Wt 89.2 kg
[2019-01-24 04:25] VITALS: BP 161/84; PULSE 56; RESP 18
[2019-01-24] MEDS ORDERED: DOCUSATE SODIUM 100 MG CAP PO PRN (04:30)
[2019-01-24] MEDS ORDERED: NACL 0.9% 3 ML SYG IV SCH (04:30)
[2019-01-24] MEDS ORDERED: BISACODYL (EC) 5 MG TAB PO PRN (04:30)
[2019-01-24] MEDS: NITROGLYCERIN (SL) 0.4 MG TAB SL PRN ×5 (04:51→12:39)
[2019-01-24 07:24] VITALS: BP 153/80; PULSE 62; RESP 20
[2019-01-24] MEDS: DILTIAZEM (CD) 180 MG CAP PO SCH (08:20)
[2019-01-24] MEDS: GABAPENTIN 400 MG CAP PO SCH ×3 (08:20→20:03)
[2019-01-24] MEDS: LOSARTAN 25 MG TAB PO SCH (08:20)
[2019-01-24] MEDS: LORATADINE 10 MG TAB PO SCH (08:20)
[2019-01-24] MEDS: ENOXAPARIN 40 MG/0.4 ML SYG SC SCH (10:53)
[2019-01-24] MEDS: ACETAMINOPHEN 325 MG TAB PO PRN ×3 (10:56→23:49)
[2019-01-24 11:08] VITALS: BP 138/77; PULSE 62; RESP 18
[2019-01-24] MEDS ORDERED: morphine 2 MG INJ IV PRN (13:00)
[2019-01-24] MEDS: METOPROLOL 25 MG TAB PO SCH ×2 (14:39→20:05)
[2019-01-24 15:14] VITALS: BP 139/83; PULSE 63; RESP 20
[2019-01-24] MEDS ORDERED: IOHEXOL 350MG/ML 50 ML BTL ONE (16:09)
[2019-01-24] MEDS ORDERED: SOD CHLORIDE 0.9% 100 ML ONE (16:09)
[2019-01-24] MEDS ORDERED: IOHEXOL 100 ML ONE (16:09)
[2019-01-24] MEDS ORDERED: NITROGLYCERIN AEROSOL (4.9 GM) ONE (16:12)
[2019-01-24 19:46] VITALS: BP 113/59; PULSE 75; RESP 20
[2019-01-24] MEDS ORDERED: TAMSULOSIN (SR) 0.4 MG CAP PO SCH (21:00)
[2019-01-25] VITALS: BP 119/63; PULSE 72; RESP 20
[2019-01-25 03:33] VITALS: BP 140/80; PULSE 57; RESP 18
[2019-01-25] MEDS: ACETAMINOPHEN 325 MG TAB PO PRN (07:31)
[2019-01-25 07:34] VITALS: BP 134/76; PULSE 67; RESP 20
[2019-01-25] MEDS: ENOXAPARIN 40 MG/0.4 ML SYG SC SCH (08:23)
[2019-01-25] MEDS: LOSARTAN 25 MG TAB PO SCH (08:24)
[2019-01-25] MEDS: METOPROLOL 25 MG TAB PO SCH (08:24)
[2019-01-25] MEDS: DILTIAZEM (CD) 180 MG CAP PO SCH (08:24)
[2019-01-25] MEDS: GABAPENTIN 400 MG CAP PO SCH ×2 (08:24→12:18)
[2019-01-25] MEDS: LORATADINE 10 MG TAB PO SCH (08:25)
[2019-01-25 11:34] VITALS: BP 133/79; PULSE 62; RESP 20
[2019-01-25] MEDS ORDERED: ASPIRIN (EC) 81 MG TAB PO SCH (13:00)
[2019-01-25] MEDS ORDERED: ATORVASTATIN 20 MG TAB PO SCH (21:00)
== END 2019-01-25 16:16 | disposition home or self-care (01) ==
LOC: E/R 22:47 → 6WM 01-24 01:00
PROVIDERS: ADMIT Family Medicine; ATTEND Internal Medicine
DX: R07.89 Other chest pain (principal); I10 Essential (primary) hypertension; E11.9 Type 2 diabetes mellitus without complications; F17.200 Nicotine dependence, unspecified, uncomplicated; E66.9 Obesity, unspecified; Z68.36 Body mass index [BMI] 36.0-36.9, adult; G47.33 Obstructive sleep apnea (adult) (pediatric); Z98.84 Bariatric surgery status
CPT/HCPCS: 71045; 75571; 75574; 80053; 80061; 82306; 82550; 82553; 82962; 83036; 83735; 84132; 84443; 84484; 85025; 85378; 85610; 85730; 93005; 93306; 96372; 96374; 99285; G0378; J1650; J2270; Q9967